=== PATIENT | female | born 1955 | race Caucasian/White ===

== ENCOUNTER 2016-05-09 17:40 | Emergency (ER) | payer OTHER ==
[2016-05-09] MEDS ORDERED: DEXTROSE 50%-WATER SYRINGE 50 ML SYRINGE ONE (17:56)
[2016-05-09] MEDS ORDERED: NORMAL SALINE 10 ML SYRINGE FLUSH IVP PRN ×2 (17:57→17:59)
[2016-05-09] MEDS ORDERED: Sodium Chloride 0.9% 1,000 ML PRIMARY IV ONE (17:59)
[2016-05-09 18:09] LABS: BASOPHILS # (AUTO) 0.04 10*3/UL; BASOPHILS % (AUTO) 0.6 % (0-1); EOSINOPHILS # (AUTO) 0.17 10*3/UL; EOSINOPHILS % (AUTO) 2.4 % (0-8); HEMOGLOBIN 15.7 g/dL (12.0-16.0); LYMPHOCYTES # (AUTO) 2.15 10*3/uL; MEAN CORPUSCULAR HEMOGLOBIN 31.5 PG (27-31); MEAN CORPUSCULAR HGB CONC 34.9 g/dL (33-37); MEAN CORPUSCULAR VOLUME 90.4 FL (81-99); MEAN PLATELET VOLUME 9.2 FL (7.4-12.2); MONOCYTES # (AUTO) 0.51 10*3/UL (0.3-0.8); MONOCYTES % (AUTO) 7.1 % (5-15); NEUTROPHILS # (AUTO) 4.31 10*3/UL; NEUTROPHILS % (AUTO) 59.7 % (50-80); RED BLOOD COUNT 4.98 10^6/uL (4.20-5.40)
--- NOTE | 2016-05-09 18:11 | EKG ---
[address] [address] Measurements Intervals [place] Rate: 75 P: 30 NM: 148 QRS: 48 QRSD: 96 T: 58 QT: 410 QTc: 438 Interpretive Statements SINUS RHYTHM Compared to ECG 10/12/2013 07:34:10 Sinus arrhythmia no longer present Electronically Signed On 05-10-16 11:43:34 MDT by Raymundo Miller [id number]
[2016-05-09 18:12] VITALS: RESP 18; TEMP 97.6
[2016-05-09] MEDS ORDERED: DEXTROSE 50%-WATER SYRINGE 50 ML SYRINGE IVP ONE (18:13)
[2016-05-09 18:16] LABS: PLATELET MORPHOLOGY COMMENT NORMAL MORPHOLOGY (NORM); RBC MORPHOLOGY COMMENT NORMAL MORPHOLOGY (NORM); WBC MORPHOLOGY COMMENT NORMAL MORPHOLOGY (NORM)
[2016-05-09 18:27] LABS: BLOOD UREA NITROGEN 14 mg/dL (7-22); BUN/CREATININE RATIO 23.33 (6-20); CALCIUM 9.7 mg/dL (8.7-10.7); EST GLOMERULAR FILTRATION > 60 (>60 ml/min/1.73m(2)); MAGNESIUM 1.8 mg/dL (1.6-2.4); SERUM ALBUMIN 4.6 g/dL (3.5-4.8)
[2016-05-09 18:29] LABS: VENOUS PH 7.27 (7.32-7.42)
--- NOTE | 2016-05-09 19:03 | DI ---
HISTORY: Seizure. COMPARISON: 05/07/2015. TECHNIQUE: Unenhanced images of the brain were obtained and submitted for interpretation. FINDINGS: There is no acute infarct, intracranial hemorrhage, or mass effect. There is no hydroceph alus, or significant midline shift. The basal cisterns are not effaced. The visualized paranasal sinuses and mastoids are relatively well-aerated. There is a hypodensity within the alicia on series 4, image 5. This is unchanged compared to the prior exam of 05/07/2015 (comparing current series 4, image 5, with prior series 2, image 8). Features co uld represent a focal area of ischemia. IMPRESSION: 1. No intracranial hemorrhage. MRI is recommended if clinical symptoms persist.
[2016-05-09 19:48] LABS: BILIRUBIN,URINE NEGATIVE (NEG); GLUCOSE, URINE (UA) 500 mg/dL (NEG); NITRATE,URINE NEGATIVE (NEG); OCCULT BLOOD,URINE NEGATIVE (NEG); PROTEIN,URINE 30 mg/dl (NEG); UROBILINOGEN,URINE 0.2 EU/dL (0.2)
[2016-05-09 19:49] LABS: CLARITY,URINE CLEAR (CLEAR); COLOR,URINE YELLOW
[2016-05-09 19:50] LABS: URINE SAMPLE TYPE CLEAN CATCH URINE
[2016-05-09 19:52] LABS: BACTERIA,URINE RARE; RBC,URINE 0 /hpf; SQUAMOUS EPITHELIAL CELL,UR RARE; WBC,URINE 0
[2016-05-09 20:04] LABS: AMPHETAMINE SCREEN NEGATIVE (NEG); CANNABINOID SCREEN,URINE NEGATIVE (NEG); COCAINE SCREEN NEGATIVE (NEG); METHADONE URINE SCREEN NEGATIVE (NEG); METHAMPHETAMINES SCREEN,URINE NEGATIVE (NEG); OPIATE SCREEN,URINE NEGATIVE (NEG)
[2016-05-09 21:04] LABS: VENOUS PCO2 27.2 mmHg (45-55); VENOUS PH 7.51 (7.32-7.42)
--- NOTE | 2016-05-09 21:11 | PDOC ---
Seizure HPI - General Chief Complaint: Neurological Complaints Stated Complaint: SEIZURE Date Seen by Provider: 05/09/16 Time Seen by Provider: 17:45 Source: POSITIVE: Patient, Other (Daughter) Exam Limitations: POSITIVE: Clinical condition Nurse's Notes Reviewed & Considered: Yes - History of Present Illness Initial Comments: The patient is a 58-year-old female who is brought to the emergency room by private auto by her daughter. Patient has a history of insulin-dependent diabetes mellitus for which she takes Lantus and Humalog. The patient was at home with her 19-year-old granddaughter. Patient was sitting on a commode and was not very responsive verbally to her granddaughter. The patient's grand daughter then called her mother, the patient's daughter who went to investigate. The patient's daughter found her sitting on the commode and was was poorly responsive, the patient then "fell off the commode and had a seizure ". Daughter states that the patient had seizure activity, tonic-clonic, for "about 10 minutes". This activity resolved but patient still remained confused so they brought the patient to the emergency room. The patient's daughter states that the patient had a similar episode 4 or 5 years ago due to "low blood sugars". Patient sustained no apparent head trauma. Patient's blood glucose levels apparently fluctuate widely. Patient states that her blood sugars recently have been down as low as 29. On arrival to the emergency room the patient was in no cardiopulmonary distress. She was a little diaphoretic and she was not able to recall the date or her age, although she could recognize family members. Accu-Chek was 48, and the patient was given a half amp of D 50 W and the patient resumed normal level of consciousness and her diaphoresis resolved fairly promptly. Body Location Affected: REPORTS: Other (Seizure; hypoglycemia) Timing: REPORTS: Abrupt Duration: 1/2 hour Severity: Moderate Quality: REPORTS: Other Seizure Began at (time): 17:20 Most Recent Seizure Episode: 05/09/16 Witnessed Seizure?: Yes (Daughter) Preceding Symptoms/Context (specify in comments): REPORTS: None (Confusion prior to seizure) Character of Seizure(s): REPORTS: Lost Consciousness, Completely Unresponsive, Gen. "Shaking all Over" Post-ictal Symptoms: REPORTS: None Recently seen/treated/hospitalized: No Any Prior Injuries Related to Current Complaint?: No - Patient Home Medications Home Medications: Home Medications Blood Sugar Diagnostic [Blood Glucose Test Strip] 1 each ACHS #1 box Blood-Glucose Meter [Blood Glucose Meter] 1 each ONCE #1 each 09/17/14 Ondansetron [Zofran Odt] 4 mg PO QID PRN #20 tab.rapdis 12/27/14 Insulin Aspart [Novolog Flexpen] Sample #1 08/07/15 Lancets [Bd Ultra-Fine Ii] 1 each 6XD #1 box 10/11/15 Levothyroxine Sodium 1 tab PO DAILY #90 tab 10/11/15 Simvastatin 1 tab PO QD #90 tab 10/11/15 Insulin Lispro Flexpen Inj [Humalog Flexpen Inj] 5 unit SUBCUT AC #1 insuln.pen 01/13/16 Insulin Glargine SoloStar Inj [Lantus Solostar Inj] 20 unit SUBCUT BEDTIME #1 box 04/17/16 Potassium Chloride 20 meq PO QD #90 tab 04/17/16 Pregabalin [Lyrica] 1 cap PO TID #90 cap 04/17/16 - Patient Allergies Allergies/Adverse Reactions: Allergies Allergy/AdvReac Type Severity Reaction Status Date / Time mushroom Allergy Severe Anaphylaxis Verified 05/09/16 17:53 gabapentin Allergy HALLUCINATI Verified 05/09/16 17:53 ONS coconut Allergy Intermediate HIVES Uncoded 05/09/16 17:53 pine trees Allergy Unknown SHORTNESS Uncoded 05/09/16 17:53 OF BREATH Past Medical History - heen HEENT History: Other (please comment) Additional HEENT History: teeth all removed and hates her dentures Cardiovascular History: Denies History Respiratory History: Denies History Gastrointestinal History: Gallbladder Disease Additional Gastrointestinal History: GB removed Genitourinary History: Kidney Stones Additional Genitourinary History: PASSED STONES ON HER OWN Endocrine History: Type 2 Diabetes (insulin), Hypothyroidism Musculoskeletal History: Arthritis Prosthesis or Implant: No Neurological History: Denies History Blood Disorders: Denies History Psychiatric History: Other (please comment) Additional Psychiatric History: seasonal depression, simpson are hard History of Sexually Transmitted Diseases: No Cancer History: Denies History In Past Year Been Physically Harmed or Verbally Threatened: No History of MDRO: No History of Other Communicable Diseases: No Tobacco Use: Never Smoker Alcohol Use: None Substance Use Type: None Previous Surgical History: Yes Type / Date of Surgery: see above Anesthesia Reactions: No Malignant Hyperthermia: No Significant Family History: No pertinent family hx Past Medical History Reviewed: Reviewed - No Changes ROS - Limitations ROS Limitations: No Limitations, Other (please comment) (Patient not able to give review of systems initially because of decreased level of consciousness. Cool lateral information obtained from family members. After administration of D50, patient was able to speak for herself and was able to give past medical history and review of systems.) Constitution: REPORTS: Denies Symptoms Cardiovascular: REPORTS: Denies Cardiac Symptoms Respiratory: REPORTS: Denies Resp Symptoms Neurological: REPORTS: Confusion, Headache Gastrointestinal: REPORTS: Denies GI Symptoms Endocrine: REPORTS: Denies Symptoms Musculoskeletal: REPORTS: Denies MS Symptoms Genitourinary: REPORTS: Denies Symptoms Eyes: REPORTS: Denies Symptoms ENT: REPORTS: Denies Symptoms Skin: REPORTS: Denies Skin Symptoms Lympathic: REPORTS: Denies Lympathic Symptoms Immunologic: POSITIVE: Denies Symptoms Psychiatric: POSITIVE: Denies Psych Symptoms Seizure Exam - General Appearance General Appearance: POSITIVE: No Acute Distress. NEGATIVE: Alert (Patient not alert when initially seen; patient became alert soon after administration of D50 ) - HEENT HEENT: POSITIVE: Head Inspection Nml, Eyes Inspection Nml, Ears Inspection Nml, Nose Inspection Nml, Oral/Dental Inspect. Nml, Pharynx Inspect. Nml, PERRL, EOMI - Pupil Size Pupil Size: 3 mm: Bilateral (PERRLA) - Neck Neck: POSITIVE: Non Tender, Neck Supple, Trachea Midline, Nexus Criteria Negative - Respiratory Respiratory: POSITIVE: Chest Non Tender, No Ecchymosis, Breath Sounds Normal, No Respiratory Distress - Cardiovascular Cardiovascular: POSITIVE: Regular Rate and Rhythm, Heart Sounds Normal, Equal Pulses, Strong Pulses, No Murmur, No Gallop, No JVD, No Pulse Deficit Peripheral Pulses: Radial (R): 2+, Radial (L): 2+ - Abdomen Abdomen: Soft: (All Quadrants), Normal Bowel Sounds: (All Quadrants), Denies Tenderness: (All Quadrants), No Splenomegaly: (All Quadrants), No Hepatomegaly: (All Quadrants), No Guarding: (All Quadrants), No Rebound: (All Quadrants), No Palpable Pulse: (All Quadrants), No Palpabale Mass: (All Quadrants), No Distention: (All Quadrants), No Rigidity: (All Quadrants) - Skin Skin: POSITIVE: Intact, Normal For Race, Warm, Dry, No Rash - Extremities Extremity: Non-Tender: (All Extremities), Normal ROM: (All Extremities), Normal Inspection: (All Extremities) - Observed Seizure Activity Observed Seizure Activity in ED: NEGATIVE: Focal, Generalized, Head Turned, Eyes Deviated, Awake, Responsive, Unresponsive, Other - Neuro / Psych Higher Functions: POSITIVE: Speech Normal, Confused (Initially; confusion resolved with D50). NEGATIVE: Oriented x3 (Not oriented to time or place when initially seen; patient became oriented 3 after administration of D50) Cranial Nerves: POSITIVE: Normal As Tested, No Evidence of Acute CVA Cerebellar: POSITIVE: Normal As Tested Sensorimotor: POSITIVE: No Motor Deficits, No Sensory Deficits, Reflexes Normal , Symmetrical Seizure Progress - Results Reviewed by me Xrays/CTs/US Reviewed by me: Yes Discussed with Radiologist: Yes Radiology Findings: CT scan head without contrast normal Lab Results Reviewed: Yes Lab Results:: Laboratory Results 05/09/16 05/09/16 05/09/16 Range/Units 18:00 18:15 18:16 WBC 7.21 (4.8-10.8) 10^3/uL RBC 4.98 (4.20-5.40) 10^6/uL Hgb 15.7 (12.0-16.0) g/dL Hct 45.0 (37.0-47.0) % MCV 90.4 (81-99) FL MCH 31.5 H (27-31) PG MCHC 34.9 (33-37) g/dL RDW Std Deviation 38.8 L (39-50) fL RDW Coeff of Farnaz 11.9 (11.5-14.5) % Plt Count 280 (140-350) 10*3/uL MPV 9.2 (7.4-12.2) FL Immature Gran % (Auto) 0.4 (0-5) % Neut % (Auto) 59.7 (50-80) % Lymph % (Auto) 29.8 (10-50) % [place] % (Auto) 7.1 (5-15) % Eos % (Auto) 2.4 (0-8) % Baso % (Auto) 0.6 (0-1) % Immature Gran # (Auto) 0.03 10*3/UL Neut # (Auto) 4.31 10*3/UL Lymph # (Auto) 2.15 10*3/uL [place] # (Auto) 0.51 (0.3-0.8) 10*3/UL Eos # (Auto) 0.17 10*3/UL Baso # (Auto) 0.04 10*3/UL WBC Morphology Comment Normal morphology (NORM) Plt Morphology Comment Normal morphology (NORM) RBC Morph Comment Normal morphology (NORM) VBG pH 7.27 L (7.32-7.42) VBG pCO2 40 L (45-55) mmHg VBG HCO3 18.4 L (22-26) mmol/L VBG Base Excess -9 L (-2-2) MMOL/L Sodium 145 (135-145) meq/L Potassium 2.9 L (3.8-5.2) meq/L Chloride 106 (98-112) meq/L Carbon Dioxide 19 L (23-33) meq/L Anion Gap 20 (5-20) BUN 14 (7-22) mg/dL Creatinine 0.6 (0.50-1.20) mg/dL Estimated GFR > 60 (>60 ml/min/1.73m(2)) BUN/Creatinine Ratio 23.33 H (6-20) Glucose 50 L (78-110) mg/dL Calculated Osmolality 297.0 H (267-292) mOsm/kg Calcium 9.7 (8.7-10.7) mg/dL Magnesium 1.8 (1.6-2.4) mg/dL Total Bilirubin 0.6 (0.3-1.2) mg/dL AST 17 (8-39) IU/L ALT 18 (9-52) IU/L Alkaline Phosphatase 79 (38-126) IU/L Total Protein 7.5 (6.1-8.0) g/dL Albumin 4.6 (3.5-4.8) g/dL Globulin 2.9 (2.50-4.10) g/dL Albumin/Globulin Ratio 1.50 (1.3-2.0) mg/g Ur Collection Type Urine Color Urine Clarity (CLEAR) Urine pH (5.0-8.5) Ur Specific [place] (1.005-1.030) U Specif Grav (Refrac) Urine Protein (NEG) mg/dl Urine Glucose (UA) (NEG) mg/dL Urine Ketones (NEG) Urine Occult Blood (NEG) Urine Nitrate (NEG) Urine Bilirubin (NEG) Urine Urobilinogen (0.2) EU/dL Ur Leukocyte Esterase (NEG) Urine RBC (NONE) /hpf Urine WBC (NONE) Ur Squamous Epith Cells (NONE) Ur Renal Epithelial Cell (NONE) Urine Crystals Urine Bacteria (NONE) Urine Casts (NONE) Urine Mucus (NONE) Urine Trichomonas (NONE) Urine Yeast (NONE) Ur Culture Indicated? Urine Opiates Screen (NEG) Ur Buprenorphine (NEG) Ur Oxycodone Screen (NEG) Urine Methadone Screen (NEG) Ur Propoxyphene Screen (NEG) Barbiturate Screen (NEG) U Tricyclic Antidepress (NEG) Phencyclidine Screen (NEG) Amphetamines Screen (NEG) U Methamphetamines Scrn (NEG) Benzodiazepines Screen (NEG) Cocaine Screen (NEG) U Marijuana (THC) Screen (NEG) Serum Alcohol < 10 (0-10) mg/dL 05/09/16 05/09/16 Range/Units 19:34 19:44 WBC (4.8-10.8) 10^3/uL RBC (4.20-5.40) 10^6/uL Hgb (12.0-16.0) g/dL Hct (37.0-47.0) % MCV (81-99) FL MCH (27-31) PG MCHC (33-37) g/dL RDW Std Deviation (39-50) fL RDW Coeff of Farnaz (11.5-14.5) % Plt Count (140-350) 10*3/uL MPV (7.4-12.2) FL Immature Gran % (Auto) (0-5) % Neut % (Auto) (50-80) % Lymph % (Auto) (10-50) % [place] % (Auto) (5-15) % Eos % (Auto) (0-8) % Baso % (Auto) (0-1) % Immature Gran # (Auto) 10*3/UL Neut # (Auto) 10*3/UL Lymph # (Auto) 10*3/uL [place] # (Auto) (0.3-0.8) 10*3/UL Eos # (Auto) 10*3/UL Baso # (Auto) 10*3/UL WBC Morphology Comment (NORM) Plt Morphology Comment (NORM) RBC Morph Comment (NORM) VBG pH (7.32-7.42) VBG pCO2 (45-55) mmHg VBG HCO3 (22-26) mmol/L VBG Base Excess (-2-2) MMOL/L Sodium (135-145) meq/L Potassium (3.8-5.2) meq/L Chloride (98-112) meq/L Carbon Dioxide (23-33) meq/L Anion Gap (5-20) BUN (7-22) mg/dL Creatinine (0.50-1.20) mg/dL Estimated GFR (>60 ml/min/1.73m(2)) BUN/Creatinine Ratio (6-20) Glucose 82 (78-110) mg/dL Calculated Osmolality (267-292) mOsm/kg Calcium (8.7-10.7) mg/dL Magnesium (1.6-2.4) mg/dL Total Bilirubin (0.3-1.2) mg/dL AST (8-39) IU/L ALT (9-52) IU/L Alkaline Phosphatase (38-126) IU/L Total Protein (6.1-8.0) g/dL Albumin (3.5-4.8) g/dL Globulin (2.50-4.10) g/dL Albumin/Globulin Ratio (1.3-2.0) mg/g Ur Collection Type Clean catch urine Urine Color Yellow Urine Clarity Clear (CLEAR) Urine pH 6.0 (5.0-8.5) Ur Specific [place] 1.020 (1.005-1.030) U Specif Grav (Refrac) 1.020 Urine Protein 30 (NEG) mg/dl Urine Glucose (UA) 500 (NEG) mg/dL Urine Ketones Trace (NEG) Urine Occult Blood Negative (NEG) Urine Nitrate Negative (NEG) Urine Bilirubin Negative (NEG) Urine Urobilinogen 0.2 (0.2) EU/dL Ur Leukocyte Esterase Negative (NEG) Urine RBC 0 (NONE) /hpf Urine WBC 0 (NONE) Ur Squamous Epith Cells Rare (NONE) Ur Renal Epithelial Cell None (NONE) Urine Crystals None Urine Bacteria Rare (NONE) Urine Casts None (NONE) Urine Mucus Few (NONE) Urine Trichomonas None (NONE) Urine Yeast None (NONE) Ur Culture Indicated? Culture not set Urine Opiates Screen Negative (NEG) Ur Buprenorphine Negative (NEG) Ur Oxycodone Screen Negative (NEG) Urine Methadone Screen Negative (NEG) Ur Propoxyphene Screen Negative (NEG) Barbiturate Screen Negative (NEG) U Tricyclic Antidepress Negative (NEG) Phencyclidine Screen Negative (NEG) Amphetamines Screen Negative (NEG) U Methamphetamines Scrn Negative (NEG) Benzodiazepines Screen Negative (NEG) Cocaine Screen Negative (NEG) U Marijuana (THC) Screen Negative (NEG) Serum Alcohol (0-10) mg/dL EKG Interpreted/Reviewed By Me:: Yes (normal) EKG Interpretation:: POSITIVE: Normal Sinus Rhythm, Normal Rate, Normal Intervals, Normal [place], Normal QRS, Normal ST/T - Patient's Progress Pain Medication Addressed: POSITIVE: Not Applicable School/Work Release Addressed: POSITIVE: Not Applicable Re-Examine Time:: 18:30 Re-Examine Comment: Patient is alert and oriented 3 after administration of a one half amp of D50. Repeat blood glucose 89. Patient complains of a headache , therefore CT scan ordered. Re-Examine Time: 20:30 Re-Examine Comment: Patient asymptomatic. She states she's hungry and wants to go home. Patient was fed a cinnamon roll for discharge. She states that she would go home and have supper. Patient was instructed to take her blood glucose is about 4 times a day and keep a record and then present this information to her primary care provider in about 10 days to see if she might need her insulin adjusted. Potassium is 2.9, patient was advised to double her potassium supplementation and to have her potassium rechecked when she sees her primary care doctor in about 10 days. Status: POSITIVE: Improved, Re-Examined CVA/Syncope Quality Measure Initiative: POSITIVE: EKG - Consult Counseled: POSITIVE: Patient, Family, RE: Lab Results, RE: Radiology Results, RE : DX, RE: Need for F/U Patient Care Time - Estimated PCT Patient Care Time (In Minutes): 55 Vital Signs - Recent Vital Signs Vital Signs: Vital Signs (Last 8 hours) Temp Pulse Resp BP Pulse Ox 05/09/16 18:00 97.6 F 72 18 109/69 92 - VS Reviewed Vital Signs Reviewed: Yes Discharge Clinical Impression: Hypoglycemia, Seizure, Hypokalemia due to inadequate potassium intake Discharge Disposition: Discharged to Home Condition: Fair Patient Instructions Given at Discharge: Hypoglycemia in a Person with Diabetes (ED) Additional Instructions: I'm glad you are feeling better. Have a good supper tonight. Take your blood sugars 4 times daily and keep a record, and then follow-up with your primary care provider with this record in about 10 days. Your potassium is also a little low, and therefore I like you to increase her potassium supplement to one twice daily. I believe your seizure was due to hypoglycemia, otherwise known as a low blood sugar. Return here anytime if condition worsens in any way. Follow Up With: DANIEL HASSAN [Primary Care Provider] - (Instructions as above. Follow-up with your primary care provider as above. Return here anytime if condition worsens in any way.)
== END 2016-05-09 21:25 | disposition home or self-care (01) ==
LOC: ER 17:40
DX: E11.65 Type 2 diabetes mellitus with hyperglycemia (principal); R51 Headache; E87.6 Hypokalemia; Z79.4 Long term (current) use of insulin; G40.909 Epilepsy, unspecified, not intractable, without status epilepticus
CPT/HCPCS: 36415; 70450; 80053; 80305; 80320; 81001; 81003; 82803; 82947; 82948; 83735; 85025; 93005; 93010; 96374; 99284; J7030

== ENCOUNTER → 2016-07-15 | Outpatient (CLI) | payer OTHER | LOC: MMPC 09:00 | PROVIDERS: ATTEND Family Medicine | DX: M79.602 Pain in left arm (principal); E03.9 Hypothyroidism, unspecified; E11.40 Type 2 diabetes mellitus with diabetic neuropathy, unspecified; E78.5 Hyperlipidemia, unspecified; F32.0 Major depressive disorder, single episode, mild | CPT/HCPCS: 99213; G0463 ==

== ENCOUNTER → 2016-08-20 | Outpatient (CLI) | payer OTHER ==
[2016-08-20 12:13] LABS: BLOOD UREA NITROGEN 22 mg/dL (7-22); CALCIUM 8.8 mg/dL (8.7-10.7); EST GLOMERULAR FILTRATION > 60 (>60 ml/min/1.73m(2)); HDL CHOLESTEROL 63 mg/dL (40-150); SERUM ALBUMIN 3.9 g/dL (3.5-4.8); SERUM CHOLESTEROL 221 mg/dL (120-200)
[2016-08-20 12:30] LABS: FREE T4 (FREE THYROXINE) 1.19 ng/dL (0.93-1.71)
[2016-08-20 13:28] LABS: BASOPHILS # (AUTO) 0.15 10*3/UL; BASOPHILS % (AUTO) 3.2 % (0-1); EOSINOPHILS # (AUTO) 0.08 10*3/UL; EOSINOPHILS % (AUTO) 1.7 % (0-8); HEMATOCRIT 43.9 % (37.0-47.0); HEMOGLOBIN 15.2 g/dL (12.0-16.0); MEAN CORPUSCULAR HEMOGLOBIN 30.8 PG (27-31); MEAN CORPUSCULAR HGB CONC 34.6 g/dL (33-37); MEAN CORPUSCULAR VOLUME 88.9 FL (81-99); MEAN PLATELET VOLUME 10.2 FL (7.4-12.2); MONOCYTES # (AUTO) 0.33 10*3/UL (0.3-0.8); MONOCYTES % (AUTO) 6.9 % (5-15); NEUTROPHILS # (AUTO) 2.98 10*3/UL; NEUTROPHILS % (AUTO) 62.7 % (50-80); RED BLOOD COUNT 4.94 10^6/uL (4.20-5.40)
[2016-08-20 13:31] LABS: PLATELET MORPHOLOGY COMMENT NORMAL MORPHOLOGY (NORM); RBC MORPHOLOGY COMMENT NORMAL MORPHOLOGY (NORM); WBC MORPHOLOGY COMMENT NORMAL MORPHOLOGY (NORM)
[2016-08-20 13:39] LABS: HEMOGLOBIN A1C 9.84 % (4.2-6.0)
== END ==
LOC: LAB 11:28
PROVIDERS: ATTEND Family Medicine
DX: E11.40 Type 2 diabetes mellitus with diabetic neuropathy, unspecified (principal); Z79.4 Long term (current) use of insulin; E03.9 Hypothyroidism, unspecified; E78.5 Hyperlipidemia, unspecified; F32.9 Major depressive disorder, single episode, unspecified
CPT/HCPCS: 36415; 80053; 80061; 82306; 82607; 83036; 84439; 84443; 85025

== ENCOUNTER → 2016-08-21 | Outpatient (CLI) | payer OTHER ==
--- NOTE | 2016-08-21 10:01 | EKG ---
[address] [address] Measurements Intervals [place] Rate: 61 P: 44 [place]: 151 QRS: 70 QRSD: 80 T: 72 QT: 424 QTc: 426 Interpretive Statements SINUS RHYTHM Compared to ECG 05/09/2016 18:10:07 No significant changes Electronically Signed On 08-22-16 16:26:05 MDT by Raymundo Miller [id number]
== END ==
LOC: MOB EKG 09:52
PROVIDERS: ATTEND Family Medicine
DX: G56.22 Lesion of ulnar nerve, left upper limb (principal)
CPT/HCPCS: 93005; 93010

== ENCOUNTER 2016-09-07 22:35 | Inpatient (IN) | payer OTHER ==
[2016-09-07] MEDS ORDERED: Sodium Chloride 0.9% 1,000 ML PRIMARY IV ONE (22:55)
[2016-09-07] MEDS ORDERED: ONDANSETRON 4 MG/2 ML VIAL IVP ONE (22:55)
[2016-09-07] MEDS ORDERED: NORMAL SALINE 10 ML SYRINGE FLUSH IVP PRN (22:55)
[2016-09-07] MEDS ORDERED: Insulin Regular Inj 100 UNIT in Sodium Chloride 0.9% 99 ML IV ONE (23:27)
[2016-09-07 23:29] LABS: VENOUS PH 7.16 (7.32-7.42)
[2016-09-07 23:30] LABS: BILIRUBIN,URINE NEGATIVE (NEG); CLARITY,URINE CLEAR (CLEAR); COLOR,URINE YELLOW; GLUCOSE, URINE (UA) 500 mg/dL (NEG); NITRATE,URINE NEGATIVE (NEG); OCCULT BLOOD,URINE NEGATIVE (NEG); PROTEIN,URINE TRACE mg/dl (NEG); UROBILINOGEN,URINE 0.2 EU/dL (0.2)
[2016-09-07 23:31] LABS: URINE SAMPLE TYPE CLEAN CATCH URINE
[2016-09-07 23:32] LABS: BASOPHILS # (AUTO) 0.21 10*3/UL; BASOPHILS % (AUTO) 1.1 % (0-1); EOSINOPHILS # (AUTO) 0.05 10*3/UL; EOSINOPHILS % (AUTO) 0.3 % (0-8); HEMATOCRIT 48.5 % (37.0-47.0); HEMOGLOBIN 16.7 g/dL (12.0-16.0); LYMPHOCYTES # (AUTO) 2.01 10*3/uL; MEAN CORPUSCULAR HEMOGLOBIN 30.5 PG (27-31); MEAN CORPUSCULAR HGB CONC 34.4 g/dL (33-37); MEAN CORPUSCULAR VOLUME 88.7 FL (81-99); MEAN PLATELET VOLUME 10.4 FL (7.4-12.2); MONOCYTES # (AUTO) 1.09 10*3/UL (0.3-0.8); MONOCYTES % (AUTO) 5.8 % (5-15); NEUTROPHILS % (AUTO) 81.8 % (50-80); RED BLOOD COUNT 5.47 10^6/uL (4.20-5.40)
[2016-09-07 23:33] LABS: PLATELET MORPHOLOGY COMMENT NORMAL MORPHOLOGY (NORM); RBC MORPHOLOGY COMMENT NORMAL MORPHOLOGY (NORM); WBC MORPHOLOGY COMMENT NORMAL MORPHOLOGY (NORM)
[2016-09-07 23:43] LABS: BLOOD UREA NITROGEN 20 mg/dL (7-22); BUN/CREATININE RATIO 22.22 (6-20); CALCIUM 10.7 mg/dL (8.7-10.7); EST GLOMERULAR FILTRATION > 60 (>60 ml/min/1.73m(2)); MAGNESIUM 2.2 mg/dL (1.6-2.4); SERUM ALBUMIN 5.1 g/dL (3.5-4.8)
[2016-09-08] MEDS ORDERED: Simvastatin Tab 10 MG TAB PO SCH ×2 (00:41→21:00)
[2016-09-08] MEDS ORDERED: NORMAL SALINE 10 ML SYRINGE FLUSH IVP PRN ×2 (00:41→06:54)
[2016-09-08] MEDS ORDERED: ONDANSETRON 4 MG/2 ML VIAL IVP PRN ×2 (00:41→17:54)
[2016-09-08] MEDS ORDERED: Insulin Regular Inj 100 UNIT in Sodium Chloride 0.9% 99 ML IV SCH (00:41)
--- NOTE | 2016-09-08 00:43 | PDOC ---
History and Physical - History of Present Illness History of Present Illness: This very nice 61-year-old well-known to our service from multiple admissions for DKA she is usually noncompliant but according to the story she had arm surgery on Wednesday and was given narcotics for pain control this made her confused and did not take her usual insulin doses as she should've according to her daughter and she is awake and oriented 3 and is in good spirits denies chest pain she did have some nausea and vomiting earlier today but nothing now she did receive 1 L of IV fluids in the ER Past Medical History Medical History: 1. Diabetes on insulin. 2. Hypothyroidism. 3. Hyperlipidemia. Surgical History: 1. Surgery for broken left arm. 2. Surgery for removal of benign tumor from the breast. 3. cataract surgery Pertinent Family History: History of Alzheimer in her mother. Tobacco Use: Never Smoker Substance Use Type: None Medication / Allergies Home Medications: Home Medications Medication Instructions Recorded Confirmed Type Blood Sugar Diagnostic [Blood 1 each ACHS #1 box 09/17/14 09/07/16 Clinic Glucose Test Strip] Blood-Glucose Meter [Blood Glucose 1 each ONCE #1 each 09/17/14 09/07/16 Clinic Meter] Ondansetron [Zofran Odt] 4 mg PO QID PRN #20 tab.rapdis 12/27/14 09/08/16 Rx Lancets [Bd Ultra-Fine Ii] 1 each 6XD #1 box 10/11/15 09/08/16 Clinic Levothyroxine Sodium 1 tab PO DAILY #90 tab 10/11/15 09/08/16 Clinic Simvastatin 1 tab PO QD #90 tab 10/11/15 09/08/16 Clinic Potassium Chloride 20 meq PO QD #90 tab 04/17/16 09/08/16 Clinic Pregabalin [Lyrica] 1 cap PO BID #60 cap 07/15/16 09/08/16 Clinic Duloxetine HCl 1 cap PO BID #60 cap 08/21/16 09/07/16 Clinic Ergocalciferol (Vitamin D2) 1 cap PO 2XW #16 cap 08/21/16 09/08/16 Clinic [Vitamin D2] Insulin Glargine SoloStar Inj 25 unit SUBCUT BEDTIME #1 box 08/21/16 09/08/16 Clinic [Lantus Solostar Inj] Insulin Lispro Flexpen Inj 10 unit SUBCUT AC #1 insuln.pen 08/21/16 09/08/16 Clinic [Humalog Flexpen Inj] Allergies/Adverse Reactions: Allergies Allergy/AdvReac Type Severity Reaction Status Date / Time mushroom Allergy Severe Anaphylaxis Verified 09/07/16 22:53 gabapentin Allergy HALLUCINATI Verified 09/07/16 22:53 ONS coconut Allergy Intermediate HIVES Uncoded 09/07/16 22:53 pine trees Allergy Unknown SHORTNESS Uncoded 09/07/16 22:53 OF BREATH Review of Systems - Review of Systems All Systems: Reviewed & No Additional Complaints Except as Stated - Respiratory Respiratory: DENIES: Negative System Review, Cough, Sputum, Dyspnea At Rest, Dyspnea with Exertion, Pleuritic Pain, Hemoptysis, Wheezing, Other, See HPI - Gastrointestinal Gastrointestinal / Abdominal: REPORTS: Nausea, Vomiting - Neurological Neurologic: DENIES: Negative System Review, Headache, Numbness/Paresthesia, Tremors, Weakness, Seizures, Head Trauma, LOC, Dizziness, Confusion, Memory Loss , Difficulty Walking, Incoordination, Other, See HPI Exam - General General Appearance: POSITIVE: No Acute Distress, Cooperative - Head Head Exam: POSITIVE: Normal Inspection, Normocephalic, Atraumatic - Respiratory Respiratory Exam: POSITIVE: Clear to Auscultation - Bilaterally, Breathing Non Labored, Normal To Percussion - Cardiovascular Cardiovascular Exam: POSITIVE: RRR, No Murmur, No Clicks, No Gallops - GI/Abdominal GI/Abdominal Exam: POSITIVE: Normal Bowel Sounds, Non Tender, Non Distended, Soft - Extremities Extremities Exam: POSITIVE: No Clubbing Present, No Edema Present, No Cyanosis Present - Neurological Neurological Exam: POSITIVE: Alert, Oriented x 3, No Facial Droop, Speech Intact / Clear Results - Labs CBC and BMP: 09/07/16 23:25 09/07/16 23:25 Assessment and Plan - Patient Problems (1) DKA, type 2 Current Visit: No Status: Acute (2) DVT prophylaxis Current Visit: No Status: Acute Comment: Heparin (3) Diabetes mellitus type II, uncontrolled Current Visit: No Status: Acute (4) Leukocytosis Current Visit: No Status: Acute - Assessment / Plan Additional Assessment/Plan Details: DKAstart insulin drip normal saline with 20 K1 25 an hour labs every 2 hours consistent with CMP magnesium discussed with nursing consult the eICU
[2016-09-08 01:27] LABS: BLOOD UREA NITROGEN 19 mg/dL (7-22); BUN/CREATININE RATIO 23.75 (6-20); EST GLOMERULAR FILTRATION > 60 (>60 ml/min/1.73m(2)); MAGNESIUM 2.1 mg/dL (1.6-2.4)
[2016-09-08 01:28] LABS: CALCIUM 9.8 mg/dL (8.7-10.7)
[2016-09-08] MEDS ORDERED: Sodium Chloride 0.9% 1,000 ML PRIMARY IV ONE (01:45)
[2016-09-08] MEDS: HEPARIN 5000 UNIT/1 ML SUBCUT SCH ×2 (03:12→12:11)
[2016-09-08] MEDS ORDERED: D5-NS + 20mEq KCL 1,000 ML PRIMARY IV SCH (03:15)
[2016-09-08] MEDS ORDERED: LEVOTHYROXINE 50 MCG TABLET PO SCH (05:30)
--- NOTE | 2016-09-08 06:16 | PDOC ---
General Adult HPI - General Chief Complaint: Nausea / Vomiting / Diarrhea Stated Complaint: NAUSEA Date Seen by Provider: 09/07/16 Time Seen by Provider: 22:40 Source: POSITIVE: Patient Exam Limitations: POSITIVE: No limitations Nurse's Notes Reviewed & Considered: Yes - History of Present Illness Initial Comment: The patient is a 61 year old female. She has a long-standing history of insulin -dependent diabetes. She states that for the past 10 hours she has had nausea and has had vomited 4 times. She has a history of having had diabetic ketoacidosis in the past. She's recently undergone surgery to her left arm "on a nerve". No known fevers or chills. No diarrhea. No head chest or abdominal pain. Accu-Chek blood glucose on arrival was "greater then 500 ". Have you received a tetanus shot in the past 10 years?: Unknown Body Location Affected: REPORTS: Abdomen (Nausea and vomiting) Timing: REPORTS: Gradual, Getting Worse Duration: <24 hours (10-11 hours) Severity: Moderate Quality: REPORTS: Other (No pain anywhere) Context: REPORTS: None Modifying Factors: improves with: Vomiting Similar Symptoms Previously: Yes (with ketoacidosis) Recent Care Received: REPORTS: Recently Seen, Treated by MD, Surgery (As above) Any Prior Injuries Related to Current Complaint?: No - Patient Home Medications Home Medications: Home Medications Blood Sugar Diagnostic [Blood Glucose Test Strip] 1 each ACHS #1 box Blood-Glucose Meter [Blood Glucose Meter] 1 each ONCE #1 each 09/17/14 Ondansetron [Zofran Odt] 4 mg PO QID PRN #20 tab.rapdis 12/27/14 Lancets [Bd Ultra-Fine Ii] 1 each 6XD #1 box 10/11/15 Levothyroxine Sodium 1 tab PO DAILY #90 tab 10/11/15 Simvastatin 1 tab PO QD #90 tab 10/11/15 Potassium Chloride 20 meq PO QD #90 tab 04/17/16 Pregabalin [Lyrica] 1 cap PO BID #60 cap 07/15/16 Duloxetine HCl 1 cap PO BID #60 cap 08/21/16 Ergocalciferol (Vitamin D2) [Vitamin D2] 1 cap PO 2XW #16 cap 08/21/16 Insulin Glargine SoloStar Inj [Lantus Solostar Inj] 25 unit SUBCUT BEDTIME #1 box 08/21/16 Insulin Lispro Flexpen Inj [Humalog Flexpen Inj] 10 unit SUBCUT AC #1 insuln.pen 08/21/16 - Patient Allergies Allergies/Adverse Reactions: Allergies Allergy/AdvReac Type Severity Reaction Status Date / Time mushroom Allergy Severe Anaphylaxis Verified 09/07/16 22:53 gabapentin Allergy HALLUCINATI Verified 09/07/16 22:53 ONS coconut Allergy Intermediate HIVES Uncoded 09/07/16 22:53 pine trees Allergy Unknown SHORTNESS Uncoded 09/07/16 22:53 OF BREATH Past Medical History - heen HEENT History: Other (please comment) Additional HEENT History: teeth all removed and hates her dentures Cardiovascular History: Denies History Respiratory History: Denies History Gastrointestinal History: Gallbladder Disease Additional Gastrointestinal History: GB removed Genitourinary History: Kidney Stones Additional Genitourinary History: PASSED STONES ON HER OWN Endocrine History: Type 2 Diabetes (insulin), Hypothyroidism Musculoskeletal History: Arthritis Prosthesis or Implant: No Neurological History: Denies History Blood Disorders: Denies History Psychiatric History: Other (please comment) Additional Psychiatric History: seasonal depression, simpson are hard History of Sexually Transmitted Diseases: No Female Reproductive History: Denies History Obstetrical History: Denies History Cancer History: Denies History In Past Year Been Physically Harmed or Verbally Threatened: No History of MDRO: No History of Other Communicable Diseases: No Tobacco Use: Never Smoker Alcohol Use: None Substance Use Type: None Previous Surgical History: Yes Type / Date of Surgery: LEFT ARM NERVE MOVEMENT ON WEDNESDAY Anesthesia Reactions: No Malignant Hyperthermia: No Significant Family History: No pertinent family hx Past Medical History Reviewed: Reviewed - No Changes ROS - Limitations ROS Limitations: No Limitations Constitution: REPORTS: Weakness, Other (Hyperventilating) Cardiovascular: REPORTS: Denies Cardiac Symptoms Respiratory: REPORTS: Denies Resp Symptoms Neurological: REPORTS: Denies Neuro Symptoms Gastrointestinal: REPORTS: Nausea, Vomitting Endocrine: REPORTS: Elevated Glucose Musculoskeletal: REPORTS: Denies MS Symptoms Genitourinary: REPORTS: Denies Symptoms Eyes: REPORTS: Denies Symptoms ENT: REPORTS: Denies Symptoms Skin: REPORTS: Denies Skin Symptoms Lympathic: REPORTS: Denies Lympathic Symptoms Immunologic: POSITIVE: Denies Symptoms Psychiatric: POSITIVE: Denies Psych Symptoms General Adult Exam - General Appearance General Appearance: POSITIVE: Alert, Cooperative, No Acute Distress, No Evidence of Trauma, Anxious, Other (Hyperventilating; mucous membranes appear dry) - HEENT HEENT: POSITIVE: Head Inspection Nml, Eyes Inspection Nml, Ears Inspection Nml, Nose Inspection Nml, Pharynx Inspect. Nml, PERRL, EOMI. NEGATIVE: Oral/Dental Inspect. Nml (Lips and mucous membranes dry) - Pupils Pupil Size: 3 mm: Bilateral (PERRLA) - Neck Neck: POSITIVE: Normal Inspection, Thyroid Normal - Respiratory Respiratory: POSITIVE: No Respiratory Distress - Cardiovascular Cardiovascular: POSITIVE: Regular Rate & Rhythm, No Murmur, No Gallop, PMI Normal, Tachycardia (Around the 100, sinus tachycardia) Peripheral Pulses: Radial (R): 2+, Radial (L): 2+ - Abdomen Abdomen: Soft: (All Quadrants), Normal Bowel Sounds: (All Quadrants), Denies Tenderness: (All Quadrants), No Splenomegaly: (All Quadrants), No Hepatomegaly: (All Quadrants), No Guarding: (All Quadrants), No Rebound: (All Quadrants), No Palpable Pulse: (All Quadrants), No Palpabale Mass: (All Quadrants), No Distention: (All Quadrants), No Rigidity: (All Quadrants) - Back Back: POSITIVE: Normal Inspection - Skin Skin: POSITIVE: Normal Color, Warm, Dry, No Rash - Extremities Extremity: Non-Tender: (All Extremities), Normal ROM: (All Extremities), Normal Inspection: (All Extremities) - Neurological / Psychological Neurological: POSITIVE: Oriented X3, 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, Motor Normal, Sensation Normal, 5, 6 General Adult Progress - Results Reviewed by me Lab Results Reviewed: Yes Lab Results:: Laboratory Results 09/07/16 09/07/16 09/07/16 Range/Units 23:19 23:25 23:28 WBC 18.94 H (4.8-10.8) 10^3/uL RBC 5.47 H (4.20-5.40) 10^6/uL Hgb 16.7 H (12.0-16.0) g/dL Hct 48.5 H (37.0-47.0) % MCV 88.7 (81-99) FL MCH 30.5 (27-31) PG MCHC 34.4 (33-37) g/dL RDW Std Deviation 41.4 (39-50) fL RDW Coeff of Farnaz 12.8 (11.5-14.5) % Plt Count 340 (140-350) 10*3/uL MPV 10.4 (7.4-12.2) FL Immature Gran % (Auto) 0.4 (0-5) % Neut % (Auto) 81.8 H (50-80) % Lymph % (Auto) 10.6 (10-50) % [place] % (Auto) 5.8 (5-15) % Eos % (Auto) 0.3 (0-8) % Baso % (Auto) 1.1 H (0-1) % Immature Gran # (Auto) 0.08 10*3/UL Neut # (Auto) 15.50 10*3/UL Lymph # (Auto) 2.01 10*3/uL [place] # (Auto) 1.09 H (0.3-0.8) 10*3/UL Eos # (Auto) 0.05 10*3/UL Baso # (Auto) 0.21 10*3/UL WBC Morphology Comment Normal morphology (NORM) Plt Morphology Comment Normal morphology (NORM) RBC Morph Comment Normal morphology (NORM) VBG pH 7.16 L (7.32-7.42) VBG pCO2 21 L (45-55) mmHg VBG HCO3 8 L (22-26) mmol/L VBG Base Excess -21 L (-2-2) MMOL/L Sodium 139 (135-145) meq/L Potassium 4.9 (3.8-5.2) meq/L Chloride 103 (98-112) meq/L Carbon Dioxide 7 L (23-33) meq/L Anion Gap 29 H (5-20) BUN 20 (7-22) mg/dL Creatinine 0.9 (0.50-1.20) mg/dL Estimated GFR > 60 (>60 ml/min/1.73m(2)) BUN/Creatinine Ratio 22.22 H (6-20) Glucose 599 H* (78-110) mg/dL Calculated Osmolality 318.0 H (267-292) mOsm/kg Calcium 10.7 (8.7-10.7) mg/dL Magnesium 2.2 (1.6-2.4) mg/dL Total Bilirubin 1.0 (0.3-1.2) mg/dL AST 25 (8-39) IU/L ALT 17 (9-52) IU/L Alkaline Phosphatase 142 H (38-126) IU/L Total Protein 8.5 H (6.1-8.0) g/dL Albumin 5.1 H (3.5-4.8) g/dL Globulin 3.4 (2.50-4.10) g/dL Albumin/Globulin Ratio 1.50 (1.3-2.0) mg/g Ur Collection Type Clean catch urine Urine Color Yellow Urine Clarity Clear (CLEAR) Urine pH 5.0 (5.0-8.5) Ur Specific [place] 1.015 (1.005-1.030) Urine Protein Trace (NEG) mg/dl Urine Glucose (UA) 500 (NEG) mg/dL Urine Ketones >=160 (NEG) Urine Occult Blood Negative (NEG) Urine Nitrate Negative (NEG) Urine Bilirubin Negative (NEG) Urine Urobilinogen 0.2 (0.2) EU/dL Ur Leukocyte Esterase Negative (NEG) Ur Culture Indicated? Culture not set - Patient's Progress Pain Medication Addressed: POSITIVE: Not Applicable School/Work Release Addressed: POSITIVE: Not Applicable Re-Examine Time: 23:55 Re-Examine Comment: Patient hydrated with about 1300 mL normal saline in the emergency room. Once potassium level was returned, patient was started on regular insulin at 0.1 mg/kg per hour. Patient feels much better on discharge to the [facility]. Status: POSITIVE: Improved, Re-Examined Antibiotics Given: No - Consult Consult (If Yes, Name of Consulting MD & Time Called): Yes (Dr. Wadsworth, hospitalist, [id number]) Consulting MD will see pt:: POSITIVE: [facility] [place] Admit Counseled: POSITIVE: Patient, RE: Lab Results, RE: DX, RE: Need for F/U Patient Care Time - Estimated PCT Patient Care Time (In Minutes): 60 Vital Signs - Recent Vital Signs Vital Signs: Vital Signs (Last 8 hours) Temp Pulse Pulse Pulse Pulse Resp BP 09/08/16 06:00 100 16 09/08/16 05:00 98.7 F 112 H 20 09/08/16 03:00 110 H 110 H 15 09/08/16 02:00 113 H 14 09/08/16 01:00 97.8 F 112 H 9 L 09/08/16 00:50 112 H 9 L 09/08/16 00:29 96.8 F 109 H 22 127/78 09/07/16 22:50 97.8 F 97 20 09/07/16 22:35 97.8 F 97 20 BP Pulse Ox 09/08/16 06:00 106/67 93 09/08/16 05:00 115/76 09/08/16 03:00 124/72 93 09/08/16 02:00 118/72 94 09/08/16 01:00 124/83 95 09/08/16 00:50 09/08/16 00:29 93 09/07/16 22:50 144/95 97 09/07/16 22:35 144/95 97 - VS Reviewed Vital Signs Reviewed: Yes Discharge Clinical Impression: DKA (diabetic ketoacidoses) Qualifiers: Diabetes mellitus type: type 2 Diabetes mellitus complication detail: without coma Qualifier Code: (E13.10) Other specified diabetes mellitus with ketoacidosis without coma Discharge Disposition: Admit to Inpatient Condition: Fair Date Decision to Admit to Inpatient: 09/07/16 Time Decision to Admit to Inpatient: 20:45
[2016-09-08] MEDS: LIDOCAINE W/ SODIUM BICARB 0.5 ML SYR SUBD PRN ×2 (06:40→09:50)
[2016-09-08] MEDS ORDERED: LIDOCAINE 2% 20 MG/ML - 20 ML VIAL SUBCUT PRN (06:54)
[2016-09-08] MEDS ORDERED: HEPARIN 500 UNIT/5 ML SYRINGE FOR CENTRAL LINE IVP PRN (06:54)
[2016-09-08] MEDS ORDERED: Lidocaine 1% 10 MG/ML - 20 ML VIAL SUBCUT PRN (06:54)
[2016-09-08 06:58] LABS: MAGNESIUM 1.8 mg/dL (1.6-2.4)
[2016-09-08 06:59] LABS: BLOOD UREA NITROGEN 16 mg/dL (7-22); BUN/CREATININE RATIO 26.66 (6-20); CALCIUM 9.1 mg/dL (8.7-10.7); EST GLOMERULAR FILTRATION > 60 (>60 ml/min/1.73m(2))
[2016-09-08] MEDS: HYDROcodone-APAP 5 MG -325 MG TABLET PO PRN ×2 (07:33→15:49)
[2016-09-08] MEDS ORDERED: Potassium Phoshate Inj 3 MMOL/ML VIAL IV ONE (07:52)
[2016-09-08] MEDS: D5-1/2NS 1,000 ML PRIMARY IV SCH ×2 (08:37→16:03)
[2016-09-08] MEDS ORDERED: DULOXETINE 30 MG CAPSULE PO SCH (09:00)
[2016-09-08] MEDS ORDERED: Pantoprazole Inj 40 MG in Normal Saline Flush 10 ML IVP SCH (09:00)
[2016-09-08 09:50] LABS: VENOUS PH 7.35 (7.32-7.42)
[2016-09-08] MEDS ORDERED: POTASSIUM PHOSHATE IV ONE ×2 (10:00)
[2016-09-08] MEDS ORDERED: SODIUM CHLORIDE 0.9% IV ONE ×2 (10:00)
[2016-09-08 10:17] LABS: BLOOD UREA NITROGEN 15 mg/dL (7-22); CALCIUM 8.7 mg/dL (8.7-10.7); EST GLOMERULAR FILTRATION > 60 (>60 ml/min/1.73m(2)); MAGNESIUM 1.8 mg/dL (1.6-2.4)
[2016-09-08] MEDS ORDERED: Magnesium Sulfate 2gm (Premix) 2 GM in Premix 1 BAG IV ONE (10:43)
[2016-09-08 14:27] LABS: BASOPHILS # (AUTO) 0.04 10*3/UL; BASOPHILS % (AUTO) 0.4 % (0-1); EOSINOPHILS # (AUTO) 0.05 10*3/UL; EOSINOPHILS % (AUTO) 0.5 % (0-8); HEMATOCRIT 38.7 % (37.0-47.0); HEMOGLOBIN 13.5 g/dL (12.0-16.0); LYMPHOCYTES # (AUTO) 2.11 10*3/uL; MEAN CORPUSCULAR HEMOGLOBIN 30.5 PG (27-31); MEAN CORPUSCULAR HGB CONC 34.9 g/dL (33-37); MEAN CORPUSCULAR VOLUME 87.6 FL (81-99); MEAN PLATELET VOLUME 9.8 FL (7.4-12.2); MONOCYTES # (AUTO) 1.07 10*3/UL (0.3-0.8); MONOCYTES % (AUTO) 11.5 % (5-15); NEUTROPHILS % (AUTO) 64.7 % (50-80); RED BLOOD COUNT 4.42 10^6/uL (4.20-5.40)
[2016-09-08 14:35] LABS: PLATELET MORPHOLOGY COMMENT NORMAL MORPHOLOGY (NORM); RBC MORPHOLOGY COMMENT NORMAL MORPHOLOGY (NORM); WBC MORPHOLOGY COMMENT NORMAL MORPHOLOGY (NORM)
[2016-09-08 14:45] LABS: BLOOD UREA NITROGEN 14 mg/dL (7-22); CALCIUM 8.5 mg/dL (8.7-10.7); EST GLOMERULAR FILTRATION > 60 (>60 ml/min/1.73m(2))
[2016-09-08 14:46] LABS: MAGNESIUM 2.7 mg/dL (1.6-2.4)
[2016-09-08] MEDS ORDERED: Insulin Glargine SoloStar Inj 100 UNIT/ML INSULN.PEN SUBCUT ONE (16:00)
[2016-09-08] MEDS ORDERED: Insulin Lispro Flexpen 300 UNIT/3 ML INSULN.PEN SUBCUT SCH (16:30)
[2016-09-08] MEDS ORDERED: HYDROcodone-APAP 5 MG -325 MG TABLET PO PRN (17:54)
[2016-09-08] MEDS ORDERED: Insulin Glargine SoloStar Inj 100 UNIT/ML INSULN.PEN SUBCUT SCH (21:00)
[2016-09-08] MEDS: DULOXETINE 30 MG CAPSULE PO SCH (21:41)
[2016-09-08 22:14] LABS: BLOOD UREA NITROGEN 10 mg/dL (7-22); CALCIUM 8.4 mg/dL (8.7-10.7); EST GLOMERULAR FILTRATION > 60 (>60 ml/min/1.73m(2)); SERUM ALBUMIN 3.4 g/dL (3.5-4.8)
[2016-09-09] MEDS: HEPARIN 5000 UNIT/1 ML SUBCUT SCH ×2 (01:00→08:54)
[2016-09-09 05:22] LABS: HEMOGLOBIN A1C 11.61 % (4.2-6.0)
[2016-09-09 05:24] LABS: BLOOD UREA NITROGEN 9 mg/dL (7-22); CALCIUM 8.6 mg/dL (8.7-10.7); EST GLOMERULAR FILTRATION > 60 (>60 ml/min/1.73m(2)); SERUM ALBUMIN 3.3 g/dL (3.5-4.8)
[2016-09-09] MEDS ORDERED: LEVOTHYROXINE 50 MCG TABLET PO SCH (05:30)
[2016-09-09] MEDS ORDERED: Insulin Lispro Flexpen 300 UNIT/3 ML INSULN.PEN SUBCUT SCH (07:00)
[2016-09-09 07:14] VITALS: RESP 18
[2016-09-09] MEDS: Insulin Lispro Flexpen 300 UNIT/3 ML INSULN.PEN SUBCUT SCH ×2 (08:35→12:00)
[2016-09-09] MEDS: DULOXETINE 30 MG CAPSULE PO SCH (08:52)
[2016-09-09] MEDS ORDERED: POTASSIUM CHLORIDE 20 MEQ TAB PO SCH ×2 (09:00→10:00)
[2016-09-09 11:38] VITALS: TEMP 97.1
--- NOTE | 2016-09-09 12:14 | DCSUMMARY ---
Hospitalization Summary Hospital Course: Final Discharge Diagnosis: Current Visit Problems Problem Status Priority Diagnosed Code DKA (diabetic ketoacidoses) Acute Diagnostic Data, Laboratory Data, and Procedures of Signifigance: Active Medications Generic Name Dose Route Start Last Admin Trade Name Freq PRN Reason Stop Dose Admin Acetaminophen/Hydrocodone Bitart 1 tab 09/08/16 17:54 09/08/16 21:40 [place] 5/325 Tab PO 1 tab Q4H PRN Administration MODERATE TO SEVERE PAIN Duloxetine HCl 30 mg 09/08/16 21:00 09/09/16 08:52 Cymbalta PO 30 mg BID DARRION Administration Heparin Sodium (Porcine) 5,000 unit 09/09/16 00:41 09/09/16 08:54 Heparin Inj SUBCUT 5,000 unit Q8H DARRION Administration Insulin Glargine 25 unit 09/08/16 21:00 09/08/16 21:41 Lantus Solostar Inj SUBCUT 25 unit BEDTIME DARRION Administration Insulin Human Lispro 10 unit 09/09/16 07:00 09/09/16 08:35 Humalog Flexpen Inj SUBCUT 5 unit AC DARRION Administration Levothyroxine Sodium 150 mcg 09/09/16 05:30 09/09/16 04:34 Synthroid PO 150 mcg DAILY@0530 DARRION Administration Ondansetron HCl 4 mg 09/08/16 17:54 Zofran Inj IVP Q4H PRN NAUSEA / VOMITING Potassium Chloride 40 meq 09/09/16 10:00 09/09/16 10:57 Klor-Con PO 40 meq BID DARRION Administration Simvastatin 10 mg 09/08/16 21:00 09/08/16 21:39 Zocor PO 10 mg BEDTIME DARRION Administration Laboratory Results 09/07/16 09/07/16 09/07/16 Range/Units 23:19 23:25 23:28 WBC 18.94 H (4.8-10.8) 10^3/uL RBC 5.47 H (4.20-5.40) 10^6/uL Hgb 16.7 H (12.0-16.0) g/dL Hct 48.5 H (37.0-47.0) % MCV 88.7 (81-99) FL MCH 30.5 (27-31) PG MCHC 34.4 (33-37) g/dL RDW Std Deviation 41.4 (39-50) fL RDW Coeff of Farnaz 12.8 (11.5-14.5) % Plt Count 340 (140-350) 10*3/uL MPV 10.4 (7.4-12.2) FL Immature Gran % (Auto) 0.4 (0-5) % Neut % (Auto) 81.8 H (50-80) % Lymph % (Auto) 10.6 (10-50) % Jay % (Auto) 5.8 (5-15) % Eos % (Auto) 0.3 (0-8) % Baso % (Auto) 1.1 H (0-1) % Immature Gran # (Auto) 0.08 10*3/UL Neut # (Auto) 15.50 10*3/UL Lymph # (Auto) 2.01 10*3/uL [place] # (Auto) 1.09 H (0.3-0.8) 10*3/UL Eos # (Auto) 0.05 10*3/UL Baso # (Auto) 0.21 10*3/UL WBC Morphology Comment Normal morphology (NORM) Plt Morphology Comment Normal morphology (NORM) RBC Morph Comment Normal morphology (NORM) VBG pH 7.16 L (7.32-7.42) VBG pCO2 21 L (45-55) mmHg VBG HCO3 8 L (22-26) mmol/L VBG Base Excess -21 L (-2-2) MMOL/L Sodium 139 (135-145) meq/L Potassium 4.9 (3.8-5.2) meq/L Chloride 103 (98-112) meq/L Carbon Dioxide 7 L (23-33) meq/L Anion Gap 29 H (5-20) BUN 20 (7-22) mg/dL Creatinine 0.9 (0.50-1.20) mg/dL Estimated GFR > 60 (>60 ml/min/1.73m(2)) BUN/Creatinine Ratio 22.22 H (6-20) Glucose 599 H* (78-110) mg/dL Mean Blood Glucose mg/dL Hemoglobin A1c (4.2-6.0) % Calculated Osmolality 318.0 H (267-292) mOsm/kg Lactic Acid (0.70-2.10) MMOL/L Calcium 10.7 (8.7-10.7) mg/dL Phosphorus (2.4-4.3) mg/dl Magnesium 2.2 (1.6-2.4) mg/dL Total Bilirubin 1.0 (0.3-1.2) mg/dL AST 25 (8-39) IU/L ALT 17 (9-52) IU/L Alkaline Phosphatase 142 H (38-126) IU/L Total Protein 8.5 H (6.1-8.0) g/dL Albumin 5.1 H (3.5-4.8) g/dL Globulin 3.4 (2.50-4.10) g/dL Albumin/Globulin Ratio 1.50 (1.3-2.0) mg/g Ur Collection Type Clean catch urine Urine Color Yellow Urine Clarity Clear (CLEAR) Urine pH 5.0 (5.0-8.5) Ur Specific [place] 1.015 (1.005-1.030) Urine Protein Trace (NEG) mg/dl Urine Glucose (UA) 500 (NEG) mg/dL Urine Ketones >=160 (NEG) Urine Occult Blood Negative (NEG) Urine Nitrate Negative (NEG) Urine Bilirubin Negative (NEG) Urine Urobilinogen 0.2 (0.2) EU/dL Ur Leukocyte Esterase Negative (NEG) Ur Culture Indicated? Culture not set 09/08/16 09/08/16 09/08/16 Range/Units 01:14 06:44 09:47 WBC (4.8-10.8) 10^3/uL RBC (4.20-5.40) 10^6/uL Hgb (12.0-16.0) g/dL Hct (37.0-47.0) % MCV (81-99) FL MCH (27-31) PG MCHC (33-37) g/dL RDW Std Deviation (39-50) fL RDW Coeff of Farnaz (11.5-14.5) % Plt Count (140-350) 10*3/uL MPV (7.4-12.2) FL Immature Gran % (Auto) (0-5) % Neut % (Auto) (50-80) % Lymph % (Auto) (10-50) % [place] % (Auto) (5-15) % Eos % (Auto) (0-8) % Baso % (Auto) (0-1) % Immature Gran # (Auto) 10*3/UL Neut # (Auto) 10*3/UL Lymph # (Auto) 10*3/uL [place] # (Auto) (0.3-0.8) 10*3/UL Eos # (Auto) 10*3/UL Baso # (Auto) 10*3/UL WBC Morphology Comment (NORM) Plt Morphology Comment (NORM) RBC Morph Comment (NORM) VBG pH 7.35 (7.32-7.42) VBG pCO2 28 L (45-55) mmHg VBG HCO3 15 L (22-26) mmol/L VBG Base Excess -10 L (-2-2) MMOL/L Sodium 144 142 (135-145) meq/L Potassium 4.7 4.2 (3.8-5.2) meq/L Chloride 110 117 H (98-112) meq/L Carbon Dioxide 8 L 13 L (23-33) meq/L Anion Gap 26 H 12 (5-20) BUN 19 16 (7-22) mg/dL Creatinine 0.8 0.6 (0.50-1.20) mg/dL Estimated GFR > 60 > 60 (>60 ml/min/1.73m(2)) BUN/Creatinine Ratio 23.75 H 26.66 H (6-20) Glucose 422 H* 138 H (78-110) mg/dL Mean Blood Glucose mg/dL Hemoglobin A1c (4.2-6.0) % Calculated Osmolality 317.0 H 296.0 H (267-292) mOsm/kg Lactic Acid 2.0 (0.70-2.10) MMOL/L Calcium 9.8 9.1 (8.7-10.7) mg/dL Phosphorus 6.2 H 1.7 L (2.4-4.3) mg/dl Magnesium 2.1 1.8 (1.6-2.4) mg/dL Total Bilirubin (0.3-1.2) mg/dL AST (8-39) IU/L ALT (9-52) IU/L Alkaline Phosphatase (38-126) IU/L Total Protein (6.1-8.0) g/dL Albumin (3.5-4.8) g/dL Globulin (2.50-4.10) g/dL Albumin/Globulin Ratio (1.3-2.0) mg/g Ur Collection Type Urine Color Urine Clarity (CLEAR) Urine pH (5.0-8.5) Ur Specific [place] (1.005-1.030) Urine Protein (NEG) mg/dl Urine Glucose (UA) (NEG) mg/dL Urine Ketones (NEG) Urine Occult Blood (NEG) Urine Nitrate (NEG) Urine Bilirubin (NEG) Urine Urobilinogen (0.2) EU/dL Ur Leukocyte Esterase (NEG) Ur Culture Indicated? 09/08/16 09/08/16 09/08/16 Range/Units 09:48 14:17 22:01 WBC 9.29 (4.8-10.8) 10^3/uL RBC 4.42 (4.20-5.40) 10^6/uL Hgb 13.5 (12.0-16.0) g/dL Hct 38.7 (37.0-47.0) % MCV 87.6 (81-99) FL MCH 30.5 (27-31) PG MCHC 34.9 (33-37) g/dL RDW Std Deviation 40.3 (39-50) fL RDW Coeff of [place]arn[place] 13.0 (11.5-14.5) % Plt Count 278 (140-350) 10*3/uL MPV 9.8 (7.4-12.2) FL Immature Gran % (Auto) 0.2 (0-5) % Neut % (Auto) 64.7 (50-80) % Lymph % (Auto) 22.7 (10-50) % Jay % (Auto) 11.5 (5-15) % Eos % (Auto) 0.5 (0-8) % Baso % (Auto) 0.4 (0-1) % Immature Gran # (Auto) 0.02 10*3/UL Neut # (Auto) 6.00 10*3/UL Lymph # (Auto) 2.11 10*3/uL [place] # (Auto) 1.07 H (0.3-0.8) 10*3/UL Eos # (Auto) 0.05 10*3/UL Baso # (Auto) 0.04 10*3/UL WBC Morphology Comment Normal morphology (NORM) Plt Morphology Comment Normal morphology (NORM) RBC Morph Comment Normal morphology (NORM) VBG pH (7.32-7.42) VBG pCO2 (45-55) mmHg VBG HCO3 (22-26) mmol/L VBG Base Excess (-2-2) MMOL/L Sodium 140 140 136 (135-145) meq/L Potassium 3.7 L 3.7 L 3.9 (3.8-5.2) meq/L Chloride 114 H 114 H 109 (98-112) meq/L Carbon Dioxide 18 L 18 L 20 L (23-33) meq/L Anion Gap 8 8 7 (5-20) BUN 15 14 10 (7-22) mg/dL Creatinine 0.5 0.5 0.5 (0.50-1.20) mg/dL Estimated GFR > 60 > 60 > 60 (>60 ml/min/1.73m(2)) BUN/Creatinine Ratio 30.00 H 28.00 H 20.00 (6-20) Glucose 186 H 75 L 248 H (78-110) mg/dL Mean Blood Glucose mg/dL Hemoglobin A1c (4.2-6.0) % Calculated Osmolality 295.0 H 289.0 288.0 (267-292) mOsm/kg Lactic Acid (0.70-2.10) MMOL/L Calcium 8.7 8.5 L 8.4 L (8.7-10.7) mg/dL Phosphorus 2.7 6.1 H (2.4-4.3) mg/dl Magnesium 1.8 2.7 H (1.6-2.4) mg/dL Total Bilirubin 0.7 (0.3-1.2) mg/dL AST 13 (8-39) IU/L ALT 29 D (9-52) IU/L Alkaline Phosphatase 72 (38-126) IU/L Total Protein 5.9 L (6.1-8.0) g/dL Albumin 3.4 L (3.5-4.8) g/dL Globulin 2.5 (2.50-4.10) g/dL Albumin/Globulin Ratio 1.30 (1.3-2.0) mg/g Ur Collection Type Urine Color Urine Clarity (CLEAR) Urine pH (5.0-8.5) Ur Specific [place] (1.005-1.030) Urine Protein (NEG) mg/dl Urine Glucose (UA) (NEG) mg/dL Urine Ketones (NEG) Urine Occult Blood (NEG) Urine Nitrate (NEG) Urine Bilirubin (NEG) Urine Urobilinogen (0.2) EU/dL Ur Leukocyte Esterase (NEG) Ur Culture Indicated? 09/09/16 Range/Units 04:36 WBC (4.8-10.8) 10^3/uL RBC (4.20-5.40) 10^6/uL Hgb (12.0-16.0) g/dL Hct (37.0-47.0) % MCV (81-99) FL MCH (27-31) PG MCHC (33-37) g/dL RDW Std Deviation (39-50) fL RDW Coeff of [place]arn[place] (11.5-14.5) % Plt Count (140-350) 10*3/uL MPV (7.4-12.2) FL Immature Gran % (Auto) (0-5) % Neut % (Auto) (50-80) % Lymph % (Auto) (10-50) % Jay % (Auto) (5-15) % Eos % (Auto) (0-8) % Baso % (Auto) (0-1) % Immature Gran # (Auto) 10*3/UL Neut # (Auto) 10*3/UL Lymph # (Auto) 10*3/uL [place] # (Auto) (0.3-0.8) 10*3/UL Eos # (Auto) 10*3/UL Baso # (Auto) 10*3/UL WBC Morphology Comment (NORM) Plt Morphology Comment (NORM) RBC Morph Comment (NORM) VBG pH (7.32-7.42) VBG pCO2 (45-55) mmHg VBG HCO3 (22-26) mmol/L VBG Base Excess (-2-2) MMOL/L Sodium 138 (135-145) meq/L Potassium 3.0 L (3.8-5.2) meq/L Chloride 110 (98-112) meq/L Carbon Dioxide 21 L (23-33) meq/L Anion Gap 7 (5-20) BUN 9 (7-22) mg/dL Creatinine 0.5 (0.50-1.20) mg/dL Estimated GFR > 60 (>60 ml/min/1.73m(2)) BUN/Creatinine Ratio 18.00 (6-20) Glucose 100 (78-110) mg/dL Mean Blood Glucose 300.613 mg/dL Hemoglobin A1c 11.61 H (4.2-6.0) % Calculated Osmolality 284.0 (267-292) mOsm/kg Lactic Acid (0.70-2.10) MMOL/L Calcium 8.6 L (8.7-10.7) mg/dL Phosphorus (2.4-4.3) mg/dl Magnesium (1.6-2.4) mg/dL Total Bilirubin 0.5 (0.3-1.2) mg/dL AST 19 (8-39) IU/L ALT 19 (9-52) IU/L Alkaline Phosphatase 73 (38-126) IU/L Total Protein 5.9 L (6.1-8.0) g/dL Albumin 3.3 L (3.5-4.8) g/dL Globulin 2.6 (2.50-4.10) g/dL Albumin/Globulin Ratio 1.20 L (1.3-2.0) mg/g Ur Collection Type Urine Color Urine Clarity (CLEAR) Urine pH (5.0-8.5) Ur Specific [place] (1.005-1.030) Urine Protein (NEG) mg/dl Urine Glucose (UA) (NEG) mg/dL Urine Ketones (NEG) Urine Occult Blood (NEG) Urine Nitrate (NEG) Urine Bilirubin (NEG) Urine Urobilinogen (0.2) EU/dL Ur Leukocyte Esterase (NEG) Ur Culture Indicated? History and Physical pertinent to Admission: Course of Hospitalization: This very nice 61-year-old female past medical history significant for type II diabetes on insulin patient has had multiple admissions for DKA I believe if she is not compliant with her meds. But according to the story she had that left arm surgery and was taken pain medication at therefore she got confused and not taken her insulin the way she should. According to the daughter. She was seen in the ER and admitted with the respiratory acidosis and metabolic acidosis patient was treated with insulin drip with potassium replacement did really well and is back to her baseline today eating full meals she is coherent and has no complaints and is ready to be going home she will be given a quick discharge her within [address] Steen she did have diabetic education visit with her. On the date of discharge, the patient was examined: Gen.: No acute distress, alert, nontoxic Heart: Regular rate and rhythm, no murmurs, clicks, gallops, or rubs Lungs: Clear to auscultation bilaterally, breathing is nonlabored Abdomen/GI: Normal tones on auscultation, soft, nontender, nondistended Musculoskeletal/extremities: No clubbing, cyanosis, or edema Vitals reviewed and are listed below Vital Signs (24 hrs) Temp Pulse Pulse Resp BP Pulse Ox 09/09/16 11:38 97.1 F 68 18 132/71 94 09/09/16 07:13 97.2 F 74 18 114/64 92 09/09/16 04:51 97.9 F 65 16 111/75 93 09/09/16 01:20 97.6 F 67 16 126/72 94 09/08/16 17:00 66 12 93 09/08/16 16:00 97.8 F 76 11 L 116/69 92 09/08/16 15:41 87 14 09/08/16 15:00 90 78 16 125/68 97 09/08/16 14:00 84 17 108/67 94 09/08/16 13:00 84 19 115/68 93 Assessment and Plan: 1. As per discharge assessments above 2. Disposition: Home 3. Condition on discharge, stable and improved. 4. Diet: regular diet 5. Activities: resume normal activities 6. Follow-Up: 1. PCP 2. 7. Medications at the Time of Discharge: Home Medications Medication Instructions Recorded Confirmed Type Blood Sugar Diagnostic [Blood 1 each ACHS #1 box 09/17/14 09/07/16 Clinic Glucose Test Strip] Blood-Glucose Meter [Blood Glucose 1 each ONCE #1 each 09/17/14 09/07/16 Clinic Meter] Ondansetron [Zofran Odt] 4 mg PO QID PRN #20 tab.rapdis 12/27/14 09/08/16 Rx Lancets [Bd Ultra-Fine II] 1 each 6XD #1 box 10/11/15 09/08/16 Clinic Levothyroxine Sodium 1 tab PO DAILY #90 tab 10/11/15 09/08/16 Clinic Simvastatin 1 tab PO QD #90 tab 10/11/15 09/08/16 Clinic Potassium Chloride 20 meq PO QD #90 tab 04/17/16 09/08/16 Clinic Pregabalin [Lyrica] 1 cap PO BID #60 cap 07/15/16 09/08/16 Clinic Duloxetine HCl 1 cap PO BID #60 cap 08/21/16 09/07/16 Clinic Ergocalciferol (Vitamin D2) 1 cap PO 2XW #16 cap 08/21/16 09/08/16 Clinic [Vitamin D2] Insulin Glargine SoloStar Inj 25 unit SUBCUT BEDTIME #1 box 08/21/16 09/08/16 Clinic [Lantus SoloStar Inj] Insulin Lispro Flexpen Inj 10 unit SUBCUT AC #1 insuln.pen 08/21/16 09/08/16 Clinic [HumaLOG Flexpen Inj] 8. Time, care, counseling and coordination of care for this discharge is greater than 30 minutes. Exam - Vitals Vital Signs: Vital Signs Temperature 97.1 F Temperature Source Temporal Artery Scan Pulse Rate [Telemetry] 66 Pulse Rate [Apical] 112 Pulse Rate 68 Respiratory Rate 18 Blood Pressure [Right Arm] 132/71 Blood Pressure 127/78 Pulse Ox 94 Oxygen Flow Rate 1 Oxygen Delivery Method Room Air Height 5 ft 2 in Weight 58.202 kg Patient Problems - Patient Problem List (1) DKA, type 2 Current Visit: No Status: Acute (2) DVT prophylaxis Current Visit: No Status: Acute (3) Diabetes mellitus type II, uncontrolled Current Visit: No Status: Acute (4) Leukocytosis Current Visit: No Status: Acute
== END 2016-09-09 13:00 | disposition home or self-care (01) | DRG 639 ==
LOC: ER 22:35 → ICU 23:58 → MED/SURG 23:58
PROVIDERS: ADMIT Internal Medicine; ATTEND Internal Medicine
DX: E13.10 Other specified diabetes mellitus with ketoacidosis without coma (principal); R11.2 Nausea with vomiting, unspecified; D72.829 Elevated white blood cell count, unspecified
CPT/HCPCS: 36415 ×2; 80053; 81003; 82803; 82948; 83735; 85025; 96361; 96374; 96375; 99284 ×2; J1815; J2405; 80048; 83036; 83605; 84100; J1644; J3475; J3490; J7030; J7040; J7050

== ENCOUNTER → 2016-09-14 | Outpatient (CLI) | payer OTHER | LOC: MMPC 09:00 | PROVIDERS: ATTEND Family Medicine | DX: E11.40 Type 2 diabetes mellitus with diabetic neuropathy, unspecified (principal) | CPT/HCPCS: 99212; G0463 ==

== ENCOUNTER 2016-09-30 14:47 | Emergency (ER) | payer OTHER ==
[2016-09-30 15:06] VITALS: RESP 16; TEMP 98.2
--- NOTE | 2016-09-30 15:12 | PDOC ---
Skin Rash/Insect/Abscess HPI - General Chief Complaint: Laceration / Wound Stated Complaint: UPPER ARM ITCHING BURNING Date Seen by Provider: 09/30/16 Time Seen by Provider: 15:08 - History of Present Illness Initial Comments: This patient is a very nice 61-year-old woman who comes into the emergency Department complaining about pruritus around a incision for a ulnar nerve translocation. She states that she had the surgery nearly a month ago and had had a postsurgical follow-up where some Steri-Strips were placed over the incision and has since developed some pruritus there. There is no redness or tenderness or warmth or swelling but she does have significant urge to itch the area. Have you received a tetanus shot in the past 10 years?: Unknown - Patient Home Medications Home Medications: Home Medications Blood Sugar Diagnostic [Blood Glucose Test Strip] 1 each [facility] ACHS #1 box Blood-Glucose Meter [Blood Glucose Meter] 1 each [facility] ONCE #1 each 09/17/14 Lancets [Bd Ultra-Fine II] 1 each [facility] 6XD #1 box 10/11/15 Levothyroxine Sodium 1 tab PO DAILY #90 tab 10/11/15 Simvastatin 1 tab PO QD #90 tab 10/11/15 Potassium Chloride 20 meq PO QD #90 tab 04/17/16 Pregabalin [Lyrica] 1 cap PO BID #60 cap 07/15/16 Duloxetine HCl 1 cap PO BID #60 cap 08/21/16 Ergocalciferol (Vitamin D2) [Vitamin D2] 1 cap PO 2XW #16 cap 08/21/16 Insulin Glargine SoloStar Inj [Lantus SoloStar Inj] 25 unit SUBCUT BEDTIME #1 box 08/21/16 Insulin Lispro Flexpen Inj [HumaLOG Flexpen Inj] 10 unit SUBCUT AC #1 insuln.pen 08/21/16 - Patient Allergies Allergies/Adverse Reactions: Allergies Allergy/AdvReac Type Severity Reaction Status Date / Time mushroom Allergy Severe Anaphylaxis Verified 09/07/16 22:53 gabapentin Allergy HALLUCINATI Verified 09/07/16 22:53 ONS coconut Allergy Intermediate HIVES Uncoded 09/07/16 22:53 pine trees Allergy Unknown SHORTNESS Uncoded 09/07/16 22:53 OF BREATH Past Medical History - heen HEENT History: Other (please comment) Additional HEENT History: teeth all removed and hates her dentures Cardiovascular History: Denies History Respiratory History: Denies History Gastrointestinal History: Gallbladder Disease Additional Gastrointestinal History: GB removed Genitourinary History: Kidney Stones Additional Genitourinary History: PASSED STONES ON HER OWN Endocrine History: Type 2 Diabetes (insulin), Hypothyroidism Musculoskeletal History: Arthritis Prosthesis or Implant: No Neurological History: Denies History Blood Disorders: Denies History Psychiatric History: Other (please comment) Additional Psychiatric History: seasonal depression, simpson are hard History of Sexually Transmitted Diseases: No Female Reproductive History: Denies History LMP: SEVERAL YEARS AGO Obstetrical History: Denies History Cancer History: Denies History In Past Year Been Physically Harmed or Verbally Threatened: No History of MDRO: No History of Other Communicable Diseases: No Tobacco Use: Never Smoker Alcohol Use: None Substance Use Type: None Previous Surgical History: Yes Type / Date of Surgery: LEFT ARM NERVE MOVEMENT ON WEDNESDAY Anesthesia Reactions: No Malignant Hyperthermia: No Family History of Malignant Hyperthermia: No Significant Family History: No pertinent family hx Past Medical History Reviewed: Reviewed - No Changes ROS - Limitations ROS Limitations: No Limitations Constitution: REPORTS: Denies Symptoms Cardiovascular: REPORTS: Denies Cardiac Symptoms Respiratory: REPORTS: Denies Resp Symptoms Skin Rash/Insect/Abscess Exam - General Appearance General Appearance: REPORTS: Alert, Cooperative, No Acute Distress - Skin Skin: REPORTS: Warm, Dry, Other (Over the site of the incision on her left arm she has no evidence of infection or rash or allergy.) Skin Rash/Abscess Progress - Patient's Progress MDM / ED Course: Her incision actually looks very benign. There were some Steri-Strips that were in place but were starting to peel off heavily and these had been in place for more than 10 days and her surgical incision is more than 20 days nearly 25 days old. I went ahead and remove the Steri-Strips and encouraged her to just use some hypoallergenic lotion over the area and avoid scratching with her fingernails and also take some anti-histamines. If she does begin to show any signs of infection or allergy including redness warmth swelling drainage or any other issues of asked her to return for evaluation right away otherwise she can follow-up with her primary care provider surgeon if she continues to have substantial pruritus. Patient Care Time - Estimated PCT Patient Care Time (In Minutes): 10 Vital Signs - Recent Vital Signs Vital Signs: Vital Signs (Last 8 hours) Temp Pulse Resp BP Pulse Ox 09/30/16 14:57 98.2 F 63 16 114/76 98 - VS Reviewed Vital Signs Reviewed: Yes Discharge Clinical Impression: Pruritic dermatitis Discharge Disposition: Discharged to Home Condition: Good Patient Instructions Given at Discharge: Dermatitis (ED) Additional Instructions: Monitor your skin and look for signs of redness and swelling and warmth and drainage or other signs of infection Follow-up with your primary care provider in the near future if your skin symptoms recurred Do not hesitate follow-up. If you have any other concerns or issues Use some [id number]-[id number] antihistamines and some topical lotion for pruritus around her incision site Follow Up With: DANIEL HASSAN [Primary Care Provider] -
== END 2016-09-30 15:16 | disposition home or self-care (01) ==
LOC: ER 14:47
DX: L30.8 Other specified dermatitis (principal); E11.9 Type 2 diabetes mellitus without complications; Z79.4 Long term (current) use of insulin
CPT/HCPCS: 99282

== ENCOUNTER 2018-02-09 19:29 | Observation (INO) ==
[2018-02-09] MEDS ORDERED: ONDANSETRON 4 MG/2 ML VIAL IVP ONE (19:50)
[2018-02-09] MEDS ORDERED: Sodium Chloride 0.9% 1,000 ML PRIMARY IV ONE (19:50)
[2018-02-09] MEDS ORDERED: FAMOTIDINE 20 MG/2 ML VIAL IVP ONE (19:50)
[2018-02-09 19:59] LABS: BASOPHILS # (AUTO) 0.04 10*3/UL; BASOPHILS % (AUTO) 0.6 % (0-1); EOSINOPHILS # (AUTO) 0.05 10*3/UL; EOSINOPHILS % (AUTO) 0.8 % (0-8); Hematocrit [HCT] 46.2 % (37.0-47.0); Hemoglobin [HGB] 15.8 g/dL (12.0-16.0); LYMPHOCYTES # (AUTO) 1.49 10*3/uL; MEAN CORPUSCULAR HEMOGLOBIN 31.1 PG (27-31); MEAN CORPUSCULAR HGB CONC 34.2 g/dL (33-37); MEAN CORPUSCULAR VOLUME 90.9 FL (81-99); MEAN PLATELET VOLUME 9.8 FL (7.4-12.2); MONOCYTES # (AUTO) 0.37 10*3/UL (0.3-0.8); MONOCYTES % (AUTO) 5.7 % (5-15); NEUTROPHILS # (AUTO) 4.52 10*3/UL; NEUTROPHILS % (AUTO) 69.7 % (50-80); RED BLOOD COUNT 5.08 10^6/uL (4.20-5.40)
[2018-02-09 20:00] LABS: PLATELET MORPHOLOGY COMMENT NORMAL MORPHOLOGY (NORM); RBC MORPHOLOGY COMMENT NORMAL MORPHOLOGY (NORM); WBC MORPHOLOGY COMMENT NORMAL MORPHOLOGY (NORM)
[2018-02-09 20:09] LABS: VENOUS PH 7.32 (7.32-7.42)
[2018-02-09 20:11] LABS: BLOOD UREA NITROGEN 16 mg/dL (7-22); BUN/CREATININE RATIO 26.66 (6-20); LIPASE 33 IU/L (23-300)
--- NOTE | 2018-02-09 21:40 | PDOC ---
HPI - History of Present Illness Date of Service: 02/09/18 Time of Service: 22:38 Chief Complaint: Nausea vomiting diarrhea for one day duration History of Present Illness: This is a 62 years old female with medical history significant for history of diabetes on insulin, hypercholesterolemia with multiple admission to the hospital for DKA who presented to the hospital with history of vomiting, nausea and diarrhea that started this morning. She vomited twice she said. She did have diarrhea maybe 3 times since last night. She didn't eat much today just some crackles. She had some abdominal discomfort but no significant pain. She checked her blood sugar before she came in this was 244 at 5 PM. She gave herself 18 units of the Humalog and she came into the ER. By time she came into the ER her blood sugar was 400, she had reduced bicarbonate at 11, an increase in anion leonidas. She was given some fluid blood sugar went down to 230 and she was admitted. She feels a lot better compared to when she came in. No nausea no abdominal discomfort. Past Medical History Medical History: 1. Diabetes on insulin. 2. Hypothyroidism. 3. Hyperlipidemia. 4. Multiple admission for DKA last one was December 2017. 5. Diabetic neuropathy. 6. Depression Surgical History: 1. Surgery for broken left arm. 2. Surgery for removal of benign tumor from the breast. 3. cataract surgery with repeat surgery on left eye recently. 4. Left ulnar nerve surgery Pertinent Family History: History of Alzheimer in her mother. Past Social History: Does not smoke or drink. Works at [employer]. Tobacco Use: Former Smoker In the Past 12 Months, Have Used or Abuse Any of the Following Substance: None Alcohol Use: None Medication / Allergies Home Medications: Home Medications Medication Instructions Recorded Confirmed Type Blood Sugar Diagnostic [Blood 1 [facility] ACHS #1 box 09/17/14 02/09/18 History Glucose Test Strip] Blood-Glucose Meter [Blood Glucose 1 [facility] ONCE #1 ea 09/17/14 02/09/18 History Meter] Lancets [Bd Ultra-Fine II] 1 [facility] 6XD #1 box 10/11/15 02/09/18 Rx Duloxetine HCl 1 cap PO BID #60 cap 08/21/16 02/09/18 Rx potassium chloride ER 20 mEq 20 meq PO QD #90 tab 06/14/17 02/09/18 Rx tablet,extended release(part/cryst) insulin glargine (U-100) 100 30 unit SUBCUT BEDTIME #1 ml 07/07/17 02/09/18 Rx unit/mL (3 mL) subcutaneous pen insulin lispro (U- 100) 100 15 unit SUBCUT AC #1 ml 07/07/17 02/09/18 Rx unit/mL subcutaneous pen simvastatin 20 mg tablet 20 mg PO QD #90 tab 07/07/17 02/09/18 Rx levothyroxine 150 mcg tablet 150 mcg PO QDAY #30 tab 09/09/17 02/09/18 Rx pregabalin 150 mg capsule 150 mg PO BID #60 cap 12/15/17 02/09/18 Rx Allergies/Adverse Reactions: Allergies Allergy/AdvReac Type Severity Reaction Status Date / Time mushroom Allergy Severe Anaphylaxis Verified 02/10/18 06:34 gabapentin Allergy Intermediate HALLUCINATI Verified 02/10/18 06:34 ONS pine trees Allergy Severe SHORTNESS Uncoded 02/10/18 06:34 OF BREATH coconut Allergy Intermediate HIVES Uncoded 02/10/18 06:34 Review of Systems - Review of Systems All Systems: Reviewed & No Additional Complaints Except as Stated Exam - Vitals Vital Signs: Vital Signs Temperature 98.4 F Temperature Source Temporal Artery Scan Pulse Rate [Pulse Oximeter] 82 Respiratory Rate 18 Blood Pressure [Left Arm] 122/60 Pulse Ox 99 Oxygen Delivery Method Room Air Height 5 ft 3 in Weight 106 lb 3.2 oz - General General Appearance: No Acute Distress, Cooperative - Head Head Exam: Normal Inspection - Eye Eye Exam: POSITIVE: Normal Appearance - ENT ENT Exam: POSITIVE: Normal Exam - Neck Neck Exam: Normal Inspection - Respiratory Respiratory Exam: POSITIVE: Clear to Auscultation - Bilaterally - Cardiovascular Cardiovascular Exam: POSITIVE: RRR - GI/Abdominal GI/Abdominal Exam: POSITIVE: Normal Bowel Sounds, Non Tender, Non Distended, S oft, No Organomegaly - Rectal Rectal Exam: POSITIVE: Deferred - External Exam: POSITIVE: Deferred Exam: POSITIVE: Deferred - Extremities Extremities Exam: POSITIVE: Normal Inspection - Back Back Exam: POSITIVE: Normal Inspection - Neurological Neurological Exam: POSITIVE: Alert, Oriented x 3, CN II-XII Intact - Psychiatric Psychiatric Exam: POSITIVE: Normal Affect - Integumentary Integumentary Exam: POSITIVE: Normal Color Results - Labs CBC and BMP: 02/09/18 19:50 02/10/18 04:48 Assessment and Plan - Patient Problems (1) Nausea & vomiting Current Visit: No Status: Acute Comment: She had mild DKA. Her blood sugar improved is down 75 when she came into the floor. We'll continue with IV fluid will continue monitoring her blood sugar. depending on the next blood sugar will decide if we give her Lantus tonight or not. She didn't eat much today. Code(s): R11.2 - Nausea with vomiting, unspecified Qualifiers: Vomiting type: unspecified Vomiting Intractability: non-intractable Rufus lified Code(s): R11.2 - Nausea with vomiting, unspecified (2) DKA, type 2 Current Visit: No Status: Acute Comment: Continue with her Humalog. depending on her blood sugar numbers will decide about getting her Lantus tonight or not. (3) Hypothyroid Current Visit: No Status: Chronic Comment: Resume medication tomorrow. Code(s): E03.9 - Hypothyroidism, unspecified Qualifiers: Hypothyroidism type: unspecified Qualified Code(s): E03.9 - Hypothyroidism, unspecified
--- NOTE | 2018-02-09 21:59 | PDOC ---
General Adult HPI - General Chief Complaint: Nausea / Vomiting / Diarrhea Stated Complaint: NAUSEA,VOMITING, DIARRHEA Date Seen by Provider: 02/09/18 Time Seen by Provider: 19:35 Source: POSITIVE: Patient Exam Limitations: POSITIVE: No limitations Nurse's Notes Reviewed & Considered: Yes - History of Present Illness Initial Comment: The patient is a 62-year-old female who presents to the emergency department with complaints of nausea, vomiting and diarrhea. The patient states that she thinks she might of eaten some bad food and yesterday developed upset stomach and vomiting. She has continued to have nausea and vomiting and has been unable to keep much of anything down today. She states that she slept most of the day. Her blood sugar was running high at home in the upper 200s and she did take 18 units of insulin prior to coming here to the emergency department. She denies any abdominal pain and has not had any fevers or chills. She denies urinary symptoms. She is a poorly controlled diabetic and has been hospitalized multiple times with DKA. Have you received a tetanus shot in the past 10 years?: Yes - Patient Home Medications Home Medications: Home Medications Blood Sugar Diagnostic [Blood Glucose Test Strip] 1 [facility] ACHS #1 box 09/17/14 Blood-Glucose Meter [Blood Glucose Meter] 1 [facility] ONCE #1 ea 09/17/14 Lancets [Bd Ultra-Fine II] 1 [facility] 6XD #1 box 10/11/15 Duloxetine HCl 1 cap PO BID #60 cap 08/21/16 potassium chloride ER 20 mEq tablet,extended release(part/cryst) 20 meq PO QD #90 tab 06/14/17 insulin glargine (U-100) 100 unit/mL (3 mL) subcutaneous pen 30 unit SUBCUT BEDTIME #1 ml 07/07/17 insulin lispro (U- 100) 100 unit/mL subcutaneous pen 15 unit SUBCUT AC #1 ml 07/07/17 simvastatin 20 mg tablet 20 mg PO QD #90 tab 07/07/17 levothyroxine 150 mcg tablet 150 mcg PO QDAY #30 tab 09/09/17 pregabalin 150 mg capsule 150 mg PO BID #60 cap 12/15/17 - Patient Allergies Allergies/Adverse Reactions: Allergies Allergy/AdvReac Type Severity Reaction Status Date / Time mushroom Allergy Severe Anaphylaxis Verified 02/09/18 19:33 gabapentin Allergy Intermediate HALLUCINATI Verified 02/09/18 19:33 ONS pine trees Allergy Severe SHORTNESS Uncoded 02/09/18 19:33 OF BREATH coconut Allergy Intermediate HIVES Uncoded 02/09/18 19:33 Past Medical History - heen HEENT History: Dentures/Partials Additional HEENT History: teeth all removed and hates her dentures Cardiovascular History: Hypertension Respiratory History: Denies History Gastrointestinal History: Gallbladder Disease Additional Gastrointestinal History: GB removed Genitourinary History: Kidney Stones Additional Genitourinary History: PASSED STONES ON HER OWN Endocrine History: Type 2 Diabetes (insulin), Hypothyroidism Musculoskeletal History: Arthritis Prosthesis or Implant: No Neurological History: Denies History Blood Disorders: Denies History Psychiatric History: Depression, Other (please comment) Additional Psychiatric History: seasonal depression History of Sexually Transmitted Diseases: No Cancer History: Denies History In Past Year Been Physically Harmed or Verbally Threatened: No History of MDRO: No History of Other Communicable Diseases: No Tobacco Use: Former Smoker Alcohol Use: Occasionally In the Past 12 Months, Have Used or Abuse Any Substance: None Previous Surgical History: Yes Type / Date of Surgery: LEFT ARM/ELBOW NERVE. GALINA. BREAST BIOPSY. LEFT WRIST FX REPAIR Anesthesia Reactions: No Malignant Hyperthermia: No Significant Family History: No pertinent family hx Past Medical History Reviewed: Reviewed - No Changes ROS - Limitations ROS Limitations: No Limitations Constitution: DENIES: Chills, Fever Cardiovascular: REPORTS: Denies Cardiac Symptoms Respiratory: REPORTS: Denies Resp Symptoms Neurological: REPORTS: Denies Neuro Symptoms Gastrointestinal: REPORTS: Nausea, Vomitting, Diarrhea. DENIES: Black Stools, Bloody Stools Musculoskeletal: REPORTS: Denies MS Symptoms Genitourinary: REPORTS: Denies Symptoms ENT: REPORTS: Denies Symptoms Skin: DENIES: Rash General Adult Exam - General Appearance General Appearance: POSITIVE: Alert, Cooperative, No Acute Distress - HEENT HEENT: POSITIVE: Head Inspection Nml, Eyes Inspection Nml, Ears Inspection Nml, Nose Inspection Nml, Pharynx Inspect. Nml - Neck Neck: POSITIVE: Normal Inspection. NEGATIVE: Lymphadenopathy - Respiratory Respiratory: POSITIVE: No Respiratory Distress, Breath Sounds Normal - Cardiovascular Cardiovascular: POSITIVE: Regular Rate & Rhythm, No Murmur Peripheral Pulses: Dorsalis-pedis (R): 2+, Dorsalis-pedis (L): 2+ - Abdomen Abdomen: Soft: (All Quadrants), Denies Tenderness: (All Quadrants), No Distention: (All Quadrants) - Back Back: POSITIVE: Normal Inspection - Skin Skin: POSITIVE: Normal Color, No Rash - Extremities Extremity: Normal ROM: (All Extremities), Normal Inspection: (All Extremities) General Adult Progress - Results Reviewed by me Lab Results Reviewed by Me: Yes Lab Results:: Laboratory Results 02/09/18 02/09/18 02/09/18 19:50 19:50 19:58 WBC 6.48 RBC 5.08 Hgb 15.8 Hct 46.2 MCV 90.9 MCH 31.1 H MCHC 34.2 RDW Std Deviation 43.8 RDW Coeff of Farnaz 13.3 Plt Count 300 MPV 9.8 Immature Gran % (Auto) 0.2 Neut % (Auto) 69.7 Lymph % (Auto) 23.0 Mcpherson % (Auto) 5.7 Eos % (Auto) 0.8 Baso % (Auto) 0.6 Immature Gran # (Auto) 0.01 Neut # (Auto) 4.52 Lymph # (Auto) 1.49 Mcpherson # (Auto) 0.37 Eos # (Auto) 0.05 Baso # (Auto) 0.04 WBC Morphology Comment Normal morphology Plt Morphology Comment Normal morphology RBC Morph Comment Normal morphology VBG pH 7.32 VBG pCO2 21 L VBG HCO3 11 L VBG Base Excess -16 L Sodium 136 Potassium 4.0 Chloride 102 Carbon Dioxide 11 L Anion Gap 23 H BUN 16 Creatinine 0.6 Estimated GFR > 60 BUN/Creatinine Ratio 26.66 H Glucose 401 H* Calculated Osmolality 299.0 H Lactic Acid Calcium 9.7 Magnesium 1.7 Total Bilirubin 1.0 AST 24 ALT 28 Alkaline Phosphatase 123 C-Reactive Protein 0.5 Total Protein 7.8 Albumin 5.0 H Globulin 2.8 Albumin/Globulin Ratio 1.70 Amylase 51 Lipase 33 02/09/18 20:27 WBC RBC Hgb Hct MCV MCH MCHC RDW Std Deviation RDW Coeff of Farnaz Plt Count MPV Immature Gran % (Auto) Neut % (Auto) Lymph % (Auto) Mcpherson % (Auto) Eos % (Auto) Baso % (Auto) Immature Gran # (Auto) Neut # (Auto) Lymph # (Auto) Mcpherson # (Auto) Eos # (Auto) Baso # (Auto) WBC Morphology Comment Plt Morphology Comment RBC Morph Comment VBG pH VBG pCO2 VBG HCO3 VBG Base Excess Sodium Potassium Chloride Carbon Dioxide Anion Gap BUN Creatinine Estimated GFR BUN/Creatinine Ratio Glucose Calculated Osmolality Lactic Acid 1.1 Calcium Magnesium Total Bilirubin AST ALT Alkaline Phosphatase C-Reactive Protein Total Protein Albumin Globulin Albumin/Globulin Ratio Amylase Lipase CBC and BMP: 02/09/18 19:50 02/09/18 19:50 - Patient's Progress MDM / ED Course: An IV was established and the patient received 1 L bolus of normal saline. She also received Zofran and Pepcid IV. Initial venous blood gas reveals a pH of 7.3 to a bicarbonate of 11. Initial fingerstick blood sugar was 395 and the blood sugar from the lab was 401. The anion gap is slightly elevated at 23. After administration of fluids and medications the patient was feeling better and her blood sugar had come down to 261. She appears to have mild DKA. The patient is discussed with Dr. Yanez and he will admit the patient for further treatment and hydration. These findings and recommendations were discussed with the patient and she is in agreement with this plan. - Consult Counseled: POSITIVE: Patient, RE: Lab Results, RE: DX, RE: Need for F/U Patient Care Time - Estimated PCT Patient Care Time (In Minutes): 30 Vital Signs - Recent Vital Signs Vital Signs: Vital Signs (Last 8 hours) Temp Pulse Resp BP Pulse Ox 02/09/18 19:31 98.4 F 82 18 122/60 99 - VS Reviewed Vital Signs Reviewed: Yes Discharge Clinical Impression: DKA (diabetic ketoacidoses), Dehydration Discharge Disposition: Admit to Inpatient Condition: Fair Date Decision to Admit to Inpatient: 02/09/18 Time Decision to Admit to Inpatient: 21:00
[2018-02-09] MEDS ORDERED: LIDOCAINE W/ SODIUM BICARB 0.5 ML SYR SUBD PRN (22:30)
[2018-02-09] MEDS ORDERED: ACETAMINOPHEN 325 MG TABLET PO PRN (22:30)
[2018-02-09] MEDS ORDERED: ONDANSETRON 4 MG/2 ML VIAL IVP PRN (22:30)
[2018-02-09] MEDS ORDERED: CALCIUM CARBONATE 500 MG (TUMS) CHEWABLE TABLET PO PRN (22:30)
[2018-02-09] MEDS: Sodium Chloride 0.9% 1,000 ML PRIMARY IV SCH (22:55)
[2018-02-09 22:59] LABS: BILIRUBIN,URINE SMALL (NEG); CLARITY,URINE CLEAR (CLEAR); COLOR,URINE YELLOW (Y); GLUCOSE, URINE (UA) 500 mg/dL (NEG); OCCULT BLOOD,URINE NEGATIVE (NEG); PROTEIN,URINE NEGATIVE (NEG); URINE SAMPLE TYPE CLEAN CATCH URINE; UROBILINOGEN,URINE 0.2 EU/dL (0.2)
[2018-02-09 23:18] LABS: BLOOD UREA NITROGEN 16 mg/dL (7-22)
[2018-02-10] MEDS: LEVOTHYROXINE 50 MCG TABLET PO SCH (04:42)
[2018-02-10 06:07] LABS: BLOOD UREA NITROGEN 13 mg/dL (7-22); SERUM ALBUMIN 3.9 g/dL (3.5-4.8)
[2018-02-10] MEDS: Sodium Chloride 0.9% 1,000 ML PRIMARY IV SCH (07:12)
[2018-02-10] MEDS: Insulin Lispro Flexpen 300 UNIT/3 ML INSULN.PEN SUBCUT SCH ×3 (07:52→17:09)
[2018-02-10] MEDS ORDERED: Sodium Chloride 0.9% 500 ML IV ONE ×2 (08:20→09:16)
--- NOTE | 2018-02-10 08:33 | PDOC(PROG) ---
Date of Service: 02/10/18 Time of Service: 08:00 Interval History: Subjective Patient is not feeling well this morning. She is having dry heaving. She did say she vomited but the nurses said more like spits Objective : Data - Labs CBC and BMP: 02/09/18 19:50 02/10/18 04:48 Objective : Exam - General Additional General Exam Details: Looks tired. - Head Head Exam: Normal Inspection - Eye Eye Exam: Normal Appearance - ENT ENT Exam: Normal Exam - Neck Neck Exam: Normal Inspection - Respiratory Respiratory Exam: Clear to Auscultation - Bilaterally - Cardiovascular Cardiovascular Exam: RRR - GI/Abdominal GI/Abdominal Exam: Normal Bowel Sounds, Non Tender, Non Distended, Soft, No Organomegaly - Rectal Rectal Exam: Deferred - External Exam: Deferred Exam: Deferred - Extremities Extremities Exam: Normal Inspection - Back Back Exam: Normal Inspection - Neurological Neurological Exam: Alert, Oriented x 3, CN II-XII Intact, No Facial Droop, Speech Intact / Clear - Psychiatric Psychiatric Exam: Normal Affect - Integumentary Integumentary Exam: Normal Color Assessment and Plan - Patient Problems (1) Nausea & vomiting Current Visit: No Status: Acute Comment: bicarbonate did drop this morning. Her blood sugar fluctuates rapidly. We gave her insulin and will give her a bolus of fluid. Will check her blood sugar later and then will decide if we need to switch to IV drip inuslin or we can treat subcutaneously. Code(s): R11.2 - Nausea with vomiting, unspecified Qualifiers: Vomiting type: unspecified Vomiting Intractability: non-intractable Qualified Code(s): R11.2 - Nausea with vomiting, unspecified (2) DKA, type 2 Current Visit: No Status: Acute Comment: There is some DKA it's mild compared to when she came in. I think will give her as I said fluid, gave insulin will repeat her blood sugar then will decide if we keep her on the floor or move her to ICU to IV drips. (3) Hypothyroid Current Visit: No Status: Chronic Comment: Same med Code(s): E03.9 - Hypothyroidism, unspecified Qualifiers: Hypothyroidism type: unspecified Qualified Code(s): E03.9 - Hypothyroidism, unspecified
[2018-02-10] MEDS ORDERED: Simvastatin Tab 20 MG TAB PO SCH ×2 (09:00→21:00)
[2018-02-10] MEDS ORDERED: DULOXETINE 30 MG CAPSULE PO SCH (09:00)
[2018-02-10] MEDS ORDERED: Pregabalin Cap 150mg capsule PO SCH (09:00)
[2018-02-10] MEDS ORDERED: Insulin Glargine SoloStar Inj 100 UNIT/ML INSULN.PEN SUBCUT ONE ×2 (09:04→21:14)
[2018-02-10] MEDS: PANTOPRAZOLE IV 40 MG VIAL IVP SCH (12:02)
[2018-02-10 12:15] LABS: BLOOD UREA NITROGEN 11 mg/dL (7-22)
[2018-02-10] MEDS: Lactated Ringers 1,000 ML PRIMARY IV SCH ×3 (13:22→23:09)
--- NOTE | 2018-02-10 13:44 | EKG ---
[address] [address] Measurements Intervals [place] Rate: 106 P: 68 HI: 143 QRS: 62 QRSD: 89 T: 68 QT: 358 QTc: 420 Interpretive Statements SINUS TACHYCARDIA ABNORMAL RHYTHM ECG Compared to ECG 01/04/2018 08:05:15 No significant changes Electronically Signed On 02-11-18 11:23:15 MST by Henry Smiht MD [email or web address]
[2018-02-10] MEDS ORDERED: DEXTROSE 50%-WATER SYRINGE 50 ML SYRINGE ONE (15:56)
[2018-02-10] MEDS ORDERED: DEXTROSE 31 GM GEL PO PRN (16:00)
[2018-02-10] MEDS ORDERED: DEXTROSE 50%-WATER SYRINGE 50 ML SYRINGE IVP PRN (16:00)
[2018-02-10] MEDS ORDERED: Glucagon Inj Vial 1 MG/ML VIAL IM PRN (16:00)
[2018-02-10 18:23] LABS: BLOOD UREA NITROGEN 8 mg/dL (7-22)
[2018-02-10] MEDS ORDERED: Insulin Glargine SoloStar Inj 100 UNIT/ML INSULN.PEN SUBCUT SCH (21:00)
[2018-02-10] MEDS: Pregabalin Cap 150mg capsule PO SCH (21:03)
[2018-02-10] MEDS: DULOXETINE 30 MG CAPSULE PO SCH (21:03)
[2018-02-11] MEDS: LEVOTHYROXINE 50 MCG TABLET PO SCH (04:34)
[2018-02-11 05:50] LABS: BLOOD UREA NITROGEN 5 mg/dL (7-22)
[2018-02-11] MEDS ORDERED: Insulin Lispro Flexpen 300 UNIT/3 ML INSULN.PEN SUBCUT SCH ×2 (07:00→11:03)
[2018-02-11 07:01] VITALS: TEMP 97.4
[2018-02-11] MEDS: Insulin Lispro Flexpen 300 UNIT/3 ML INSULN.PEN SUBCUT SCH ×2 (07:24→12:10)
[2018-02-11] MEDS: Pregabalin Cap 150mg capsule PO SCH (08:42)
[2018-02-11] MEDS: PANTOPRAZOLE IV 40 MG VIAL IVP SCH (08:42)
[2018-02-11] MEDS: DULOXETINE 30 MG CAPSULE PO SCH (08:42)
[2018-02-11] MEDS: Lactated Ringers 1,000 ML PRIMARY IV SCH (09:36)
--- NOTE | 2018-02-11 11:04 | DCSUMMARY ---
Hospitalization Summary Admit Date: 02/09/2018 Discharge Date: 02/11/18 Hospital Course: Discharge diagnoses 1. Mild DKA resolved 2. Brittle diabetes 3. Hypothyroidism 4. History of depression 5. History of hyperlipidemia Hospital course This is a 62 years old female medical history significant for history of diabetes on insulin, hypercholesterolemia also history of multiple admissions to the hospital for DKA who presented to the hospital with history of vomiting, nausea and diarrhea that started the morning she came into the hospital. She vomited twice she had diarrhea maybe 3 times, no significant pain. Blood sugar before she came to the hospital was 244. She did give herself 18 units of Humalog before she came into the ER. By the time she came to the ER her blood sugar was 400 she had reduced bicarbonate and increased anion gap. She was given fluid blood sugar went to 30 and she was admitted. By the time I saw her she was feeling better. Blood sugar when down that night to 66. We've held her Lantus. She didn't eat much. The next day however she had rebound hy perglycemia and she started to vomit again we gave her more fluid gave her insulin including her Lantus and that's helped to improve her symptoms. She had an episode of hypoglycemia that she was not very aware of it. We gave her half of D50. And she ate and that improved. The next day she was doing much better she did not have any symptoms she felt back to her usual self. She did close her anion gap on the day of discharge. Her bicarbonate was still low at 13. Her chloride was 110. So I think this is probably related to the normal saline that she received caused her bicarbonate to be on the low side. This need to be repeated later on as an outpatient to follow-up on it. Exam is unremarkable on the day of discharge. We did watch her and her blood sugar remained stable before lunch so we thought she could be discharged home and follow-up with her PCP. She was discharged on 10 units at night of the lantus. Discharge instruction Diet regular Activity As tolerated Medications Current Medication(s) Medication Instructions Recorded Confirmed Type Blood Sugar Diagnostic [Blood 1 [facility] ACHS #1 box 09/17/14 02/09/18 History Glucose Test Strip] Blood-Glucose Meter [Blood Glucose 1 [facility] ONCE #1 ea 09/17/14 02/09/18 History Meter] Lancets [Bd Ultra-Fine II] 1 ea 6XD #1 box 10/11/15 02/09/18 Rx Duloxetine HCl 1 cap PO BID #60 cap 08/21/16 02/09/18 Rx insulin lispro (U- 100) 100 15 unit SUBCUT AC #1 ml 07/07/17 02/09/18 Rx unit/mL subcutaneous pen simvastatin 20 mg tablet 20 mg PO QD #90 tab 07/07/17 02/09/18 Rx levothyroxine 150 mcg tablet 150 mcg PO QDAY #30 tab 09/09/17 02/09/18 Rx pregabalin 150 mg capsule 150 mg PO BID #60 cap 12/15/17 02/09/18 Rx Insulin Glargine SoloStar Inj 10 unit SUBCUT BEDTIME insuln.pen 02/11/18 Rx [Lantus SoloStar Inj] Follow-up with PCP next week Condition at discharge was stable for discharge Exam - Vitals Vital Signs: Vital Signs Temperature 97.4 F Temperature Source Temporal Artery Scan Pulse Rate [Apical] 110 Pulse Rate [Pulse Oximeter] 85 Respiratory Rate 16 Blood Pressure [Right Arm] 97/45 Blood Pressure [Left Arm] 120/64 Pulse Ox 94 Oxygen Delivery Method Room Air Height 5 ft 3 in Weight 106 lb 14.4 oz - General General Appearance: No Acute Distress - Head Head Exam: Normal Inspection - Eye Eye Exam: POSITIVE: Normal Appearance - ENT ENT Exam: POSITIVE: Normal Exam - Neck Neck Exam: Normal Inspection - Respiratory Respiratory Exam: POSITIVE: Clear to Auscultation - Bilaterally - Cardiovascular Cardiovascular Exam: POSITIVE: RRR - GI/Abdominal GI/Abdominal Exam: POSITIVE: Normal Bowel Sounds, Non Tender, Non Distended, Soft, No Organomegaly - Rectal Rectal Exam: POSITIVE: Deferred - External Exam: POSITIVE: Deferred - Extremities Extremities Exam: POSITIVE: Normal Inspection - Back Back Exam: POSITIVE: Normal Inspection - Neurological Neurological Exam: POSITIVE: Alert, Oriented x 3, CN II-XII Intact, Speech Intact / Clear - Psychiatric Psychiatric Exam: POSITIVE: Normal Affect - Integumentary Integumentary Exam: POSITIVE: Normal Color Patient Problems - Patient Problem List (1) Nausea & vomiting Status: Acute Comment: iv zofran resolved Code(s): R11.2 - Nausea with vomiting, unspecified Qualifiers: Vomiting type: unspecified Vomiting Intractability: non-intractable Qualified Code(s): R11.2 - Nausea with vomiting, unspecified Category: Medical (2) DKA, type 2 Status: Acute Category: Medical (3) Hypothyroid Status: Chronic Comment: cont same meds Code(s): E03.9 - Hypothyroidism, unspecified Qualifiers: Hypothyroidism type: unspecified Qualified Code(s): E03.9 - Hypothyroidism, unspecified Category: Medical
[2018-02-11 11:07] VITALS: BP 105/55; RESP 20; O2SAT 97
== END 2018-02-11 13:10 | disposition home or self-care (01) ==
LOC: ER 19:29 → MED/SURG 19:29
PROVIDERS: ADMIT Internal Medicine; ATTEND Internal Medicine

== ENCOUNTER 2018-11-09 15:55 | Inpatient (IN) ==
[2018-11-09] MEDS ORDERED: Sodium Chloride 0.9% 1,000 ML PRIMARY IV ONE (16:10)
[2018-11-09] MEDS ORDERED: ONDANSETRON 4 MG/2 ML VIAL IVP ONE (16:10)
[2018-11-09 17:05] LABS: Hematocrit [HCT] 49.6 % (37.0-47.0); Hemoglobin [HGB] 16.8 g/dL (12.0-16.0); MEAN CORPUSCULAR HGB CONC 33.9 g/dL (33-37); MEAN CORPUSCULAR VOLUME 94.1 FL (81-99); MEAN PLATELET VOLUME 9.6 FL (7.4-12.2); RED BLOOD COUNT 5.27 10^6/uL (4.20-5.40)
[2018-11-09 17:22] LABS: PLATELET MORPHOLOGY COMMENT NORMAL MORPHOLOGY (NORM); RBC MORPHOLOGY COMMENT NORMAL MORPHOLOGY (NORM)
[2018-11-09 17:23] LABS: WBC MORPHOLOGY COMMENT SEE COMMENTS (NORM)
[2018-11-09 17:27] LABS: BAND NEUTROPHILS % 0 % (0-10); BASOPHILS % (MANUAL) 0 % (0-1); BUN/CREATININE RATIO 23.75 (6-20); EOSINOPHILS % (MANUAL) 0 % (0-8); METAMYELOCYTES % 0 %; MONOCYTES % (MANUAL) 8 % (0-12); MYELOCYTES % 0 %; NEUTROPHILS % (MANUAL) 80 % (50-80); PROMYELOCYTES % 0 %; SERUM ALBUMIN 5.3 g/dL (3.5-4.8)
[2018-11-09 18:24] LABS: BILIRUBIN,URINE MODERATE (NEG); CLARITY,URINE CLEAR (CLEAR); COLOR,URINE YELLOW (Y); GLUCOSE, URINE (UA) 500 mg/dL (NEG); OCCULT BLOOD,URINE NEGATIVE (NEG); PROTEIN,URINE NEGATIVE (NEG); URINE SAMPLE TYPE CLEAN CATCH URINE; UROBILINOGEN,URINE 0.2 EU/dL (0.2)
[2018-11-09] MEDS ORDERED: ONDANSETRON 4 MG/2 ML VIAL IVP PRN (20:14)
[2018-11-09] MEDS ORDERED: LIDOCAINE W/ SODIUM BICARB 0.5 ML SYR SUBD PRN (20:14)
[2018-11-09] MEDS ORDERED: CALCIUM CARBONATE 500 MG (TUMS) CHEWABLE TABLET PO PRN (20:14)
[2018-11-09] MEDS ORDERED: DOCUSATE 100 MG CAPSULE PO PRN (20:14)
[2018-11-09] MEDS ORDERED: ACETAMINOPHEN 325 MG TABLET PO PRN (20:14)
[2018-11-09] MEDS ORDERED: Insulin Glargine SoloStar Inj 100 UNIT/ML INSULN.PEN SUBCUT SCH (21:00)
[2018-11-09] MEDS: Sodium Chloride 0.9% 1,000 ML PRIMARY IV SCH (21:25)
[2018-11-09] MEDS: Pregabalin Cap 150mg capsule PO SCH (21:26)
[2018-11-10] MEDS ORDERED: Glucagon Inj Vial 1 MG/ML VIAL IM PRN ×3 (00:44→09:31)
[2018-11-10] MEDS ORDERED: Insulin Sliding Scale Protocol SUBCUT PRN (00:44)
[2018-11-10] MEDS ORDERED: DEXTROSE 50%-WATER SYRINGE 50 ML SYRINGE IVP PRN ×2 (00:44→09:31)
[2018-11-10] MEDS ORDERED: DEXTROSE 31 GM GEL PO PRN ×2 (00:44→09:31)
[2018-11-10] MEDS: Sodium Chloride 0.9% 1,000 ML PRIMARY IV SCH ×2 (05:06→10:40)
[2018-11-10] MEDS ORDERED: LEVOTHYROXINE 125 MCG TABLET PO SCH (05:30)
[2018-11-10 06:21] LABS: BUN/CREATININE RATIO 28.33 (6-20)
[2018-11-10] MEDS ORDERED: Insulin Lispro Flexpen 300 UNIT/3 ML INSULN.PEN SUBCUT SCH (07:00)
[2018-11-10] MEDS ORDERED: Simvastatin Tab 20 MG TAB PO SCH (09:00)
[2018-11-10] MEDS ORDERED: LIDOCAINE W/ SODIUM BICARB 0.5 ML SYR SUBD PRN ×2 (09:31)
[2018-11-10] MEDS ORDERED: Sodium Chloride 0.9% 1,000 ML PRIMARY IV SCH (09:31)
[2018-11-10] MEDS ORDERED: INSULIN REGULAR, HUMAN 100 UNIT/1 ML - 3 ML IV ONE (09:31)
[2018-11-10] MEDS ORDERED: ONDANSETRON 4 MG/2 ML VIAL IVP PRN (09:31)
[2018-11-10] MEDS ORDERED: Sodium Chloride 0.9% 1,000 ML PRIMARY IV ONE (09:31)
[2018-11-10] MEDS ORDERED: Insulin Regular Inj 100 UNIT in Sodium Chloride 0.9% 99 ML IV SCH (09:31)
[2018-11-10] MEDS ORDERED: CALCIUM CARBONATE 500 MG (TUMS) CHEWABLE TABLET PO PRN (09:31)
[2018-11-10] MEDS ORDERED: ACETAMINOPHEN 325 MG TABLET PO PRN (09:31)
[2018-11-10] MEDS: D5-1/2NS 1,000 ML PRIMARY IV SCH ×2 (10:10→18:35)
[2018-11-10] MEDS: PANTOPRAZOLE IV 40 MG VIAL IVP SCH (10:36)
[2018-11-10] MEDS: Pregabalin Cap 150mg capsule PO SCH ×3 (10:49→22:11)
[2018-11-10 14:32] LABS: BLOOD UREA NITROGEN 30 mg/dL (7-22); BUN/CREATININE RATIO 33.33 (6-20)
[2018-11-10 18:23] LABS: BLOOD UREA NITROGEN 27 mg/dL (7-22); BUN/CREATININE RATIO 38.57 (6-20)
[2018-11-10] MEDS ORDERED: Pregabalin Cap 150mg capsule PO SCH (21:00)
[2018-11-10] MEDS ORDERED: Potassium Phoshate Inj 30 MMOL in D5W 500 ML IV ONE (21:23)
[2018-11-10 21:41] LABS: BLOOD UREA NITROGEN 27 mg/dL (7-22); BUN/CREATININE RATIO 33.75 (6-20)
[2018-11-11 01:34] LABS: VENOUS PH 7.35 (7.32-7.42)
[2018-11-11 01:51] LABS: BLOOD UREA NITROGEN 24 mg/dL (7-22)
[2018-11-11] MEDS ORDERED: POTASSIUM CHLORIDE 20 MEQ TAB PO ONE (02:00)
[2018-11-11] MEDS ORDERED: DEXTROSE 31 GM GEL PO PRN (02:00)
[2018-11-11] MEDS ORDERED: Glucagon Inj Vial 1 MG/ML VIAL IM PRN (02:00)
[2018-11-11] MEDS ORDERED: DEXTROSE 50%-WATER SYRINGE 50 ML SYRINGE IVP PRN (02:00)
[2018-11-11] MEDS ORDERED: Insulin Sliding Scale Protocol SUBCUT PRN (02:01)
[2018-11-11] MEDS ORDERED: Insulin Glargine SoloStar Inj 100 UNIT/ML INSULN.PEN SUBCUT ONE (02:09)
[2018-11-11 04:55] LABS: VENOUS PH 7.34 (7.32-7.42)
[2018-11-11] MEDS: LEVOTHYROXINE 125 MCG TABLET PO SCH (05:46)
[2018-11-11 05:55] LABS: HEMOGLOBIN A1C 9.25 % (4.2-6.0)
[2018-11-11 07:35] LABS: BLOOD UREA NITROGEN 22 mg/dL (7-22); BUN/CREATININE RATIO 31.42 (6-20)
[2018-11-11] MEDS: Pregabalin Cap 150mg capsule PO SCH ×2 (08:53→21:41)
[2018-11-11] MEDS: PANTOPRAZOLE IV 40 MG VIAL IVP SCH (08:53)
[2018-11-11] MEDS: Insulin Lispro Flexpen 300 UNIT/3 ML INSULN.PEN SUBCUT SCH ×4 (09:45→22:17)
[2018-11-11] MEDS ORDERED: Insulin Lispro Flexpen 300 UNIT/3 ML INSULN.PEN SUBCUT SCH (11:00)
[2018-11-11] MEDS ORDERED: Insulin Lispro Flexpen 300 UNIT/3 ML INSULN.PEN SUBCUT ONE (12:44)
[2018-11-11] MEDS: Sodium Chloride 0.9% 1,000 ML PRIMARY IV SCH (17:18)
[2018-11-11] MEDS ORDERED: Sodium Chloride 0.9% 1,000 ML PRIMARY IV ONE (19:15)
[2018-11-11] MEDS: Simvastatin Tab 20 MG TAB PO SCH (21:41)
[2018-11-11] MEDS: Insulin Glargine SoloStar Inj 100 UNIT/ML INSULN.PEN SUBCUT SCH (22:26)
[2018-11-12] MEDS: Sodium Chloride 0.9% 1,000 ML PRIMARY IV SCH ×2 (01:42→09:28)
[2018-11-12 05:24] LABS: BASOPHILS # (AUTO) 0.01 10*3/UL; BASOPHILS % (AUTO) 0.2 % (0-1); EOSINOPHILS # (AUTO) 0.03 10*3/UL; EOSINOPHILS % (AUTO) 0.6 % (0-8); Hematocrit [HCT] 39.3 % (37.0-47.0); Hemoglobin [HGB] 12.7 g/dL (12.0-16.0); LYMPHOCYTES # (AUTO) 1.36 10*3/uL; MEAN CORPUSCULAR HGB CONC 32.3 g/dL (33-37); MEAN CORPUSCULAR VOLUME 96.1 FL (81-99); MEAN PLATELET VOLUME 9.7 FL (7.4-12.2); MONOCYTES # (AUTO) 0.54 10*3/UL (0.3-0.8); MONOCYTES % (AUTO) 10.1 % (5-15); NEUTROPHILS # (AUTO) 3.41 10*3/UL; NEUTROPHILS % (AUTO) 63.5 % (50-80); RED BLOOD COUNT 4.09 10^6/uL (4.20-5.40)
[2018-11-12 05:30] LABS: BLOOD UREA NITROGEN 17 mg/dL (7-22); BUN/CREATININE RATIO 28.33 (6-20)
[2018-11-12 05:39] LABS: PLATELET MORPHOLOGY COMMENT NORMAL MORPHOLOGY (NORM); RBC MORPHOLOGY COMMENT NORMAL MORPHOLOGY (NORM); WBC MORPHOLOGY COMMENT NORMAL MORPHOLOGY (NORM)
[2018-11-12] MEDS: LEVOTHYROXINE 125 MCG TABLET PO SCH ×2 (07:04→15:43)
[2018-11-12] MEDS: Insulin Lispro Flexpen 300 UNIT/3 ML INSULN.PEN SUBCUT SCH ×7 (07:11→21:51)
[2018-11-12] MEDS: Pregabalin Cap 150mg capsule PO SCH ×2 (15:42→20:10)
[2018-11-12] MEDS: PANTOPRAZOLE IV 40 MG VIAL IVP SCH (15:42)
[2018-11-12] MEDS: Simvastatin Tab 20 MG TAB PO SCH (20:11)
[2018-11-12] MEDS ORDERED: Insulin Glargine SoloStar Inj 100 UNIT/ML INSULN.PEN SUBCUT SCH (21:00)
[2018-11-12] MEDS: Insulin Glargine SoloStar Inj 100 UNIT/ML INSULN.PEN SUBCUT SCH (22:03)
[2018-11-13] MEDS: LEVOTHYROXINE 125 MCG TABLET PO SCH (05:41)
[2018-11-13] MEDS: Insulin Lispro Flexpen 300 UNIT/3 ML INSULN.PEN SUBCUT SCH ×7 (07:00→21:38)
[2018-11-13] MEDS: Pregabalin Cap 150mg capsule PO SCH ×2 (08:00→21:37)
[2018-11-13] MEDS: PANTOPRAZOLE IV 40 MG VIAL IVP SCH (08:02)
[2018-11-13 09:25] LABS: BLOOD UREA NITROGEN 9 mg/dL (7-22); SERUM ALBUMIN 3.1 g/dL (3.5-4.8)
[2018-11-13] MEDS: POTASSIUM CHLORIDE 20 MEQ TAB PO SCH ×2 (10:02→16:57)
[2018-11-13] MEDS: Simvastatin Tab 20 MG TAB PO SCH (21:37)
[2018-11-13] MEDS: Insulin Glargine SoloStar Inj 100 UNIT/ML INSULN.PEN SUBCUT SCH (21:37)
[2018-11-14] MEDS: LEVOTHYROXINE 125 MCG TABLET PO SCH (04:54)
[2018-11-14 05:34] LABS: BASOPHILS # (AUTO) 0.01 10*3/UL; BASOPHILS % (AUTO) 0.3 % (0-1); EOSINOPHILS # (AUTO) 0.16 10*3/UL; EOSINOPHILS % (AUTO) 4.6 % (0-8); Hematocrit [HCT] 41.9 % (37.0-47.0); Hemoglobin [HGB] 14.1 g/dL (12.0-16.0); LYMPHOCYTES # (AUTO) 1.56 10*3/uL; MEAN CORPUSCULAR HGB CONC 33.7 g/dL (33-37); MEAN CORPUSCULAR VOLUME 92.5 FL (81-99); MEAN PLATELET VOLUME 9.6 FL (7.4-12.2); MONOCYTES % (AUTO) 11.5 % (5-15); NEUTROPHILS # (AUTO) 1.35 10*3/UL; NEUTROPHILS % (AUTO) 38.6 % (50-80); RED BLOOD COUNT 4.53 10^6/uL (4.20-5.40)
[2018-11-14 05:37] LABS: PLATELET MORPHOLOGY COMMENT NORMAL MORPHOLOGY (NORM); RBC MORPHOLOGY COMMENT NORMAL MORPHOLOGY (NORM); WBC MORPHOLOGY COMMENT NORMAL MORPHOLOGY (NORM)
[2018-11-14 05:39] LABS: BLOOD UREA NITROGEN 7 mg/dL (7-22); SERUM ALBUMIN 3.1 g/dL (3.5-4.8)
[2018-11-14] MEDS: D5-1/2NS 1,000 ML PRIMARY IV SCH ×2 (06:31)
[2018-11-14] MEDS: POTASSIUM CHLORIDE 20 MEQ TAB PO SCH (06:48)
[2018-11-14] MEDS: Insulin Lispro Flexpen 300 UNIT/3 ML INSULN.PEN SUBCUT SCH ×4 (06:52→12:01)
[2018-11-14] MEDS ORDERED: NS IV ONE ×5 (07:29)
[2018-11-14] MEDS ORDERED: THIAMINE IV ONE ×5 (07:29)
[2018-11-14] MEDS ORDERED: KCL IV ONE ×5 (07:29)
[2018-11-14] MEDS ORDERED: [UNRECOGNIZED DRUG - OTHER] IV ONE ×5 (07:29)
[2018-11-14] MEDS ORDERED: FOLIC ACID IV ONE ×5 (07:29)
[2018-11-14] MEDS ORDERED: POTASSIUM CHLORIDE 20 MEQ TAB PO ONE (07:30)
[2018-11-14 07:55] VITALS: RESP 18
[2018-11-14] MEDS: PANTOPRAZOLE IV 40 MG VIAL IVP SCH (08:11)
[2018-11-14] MEDS: Pregabalin Cap 150mg capsule PO SCH (08:13)
[2018-11-14 12:03] VITALS: BP 127/78; TEMP 98.5
[2018-11-14 12:59] LABS: BLOOD UREA NITROGEN 7 mg/dL (7-22)
[2018-11-14 13:24] VITALS: O2SAT 94
== END 2018-11-14 14:28 | disposition home or self-care (01) | DRG 640 ==
LOC: ER 15:55 → MED/SURG 20:00 → ICU 11-10 07:30 → MED/SURG 11-11 10:00
PROVIDERS: ADMIT Family Medicine; ATTEND Family Medicine